=== PATIENT | female | born 1940 | race African-American/Black ===

== ENCOUNTER 2016-12-11 19:48 | Emergency (ER) | payer MEDICARE ==
[2016-12-11] MEDS ORDERED: TYLENOL PO ONE (20:10)
[2016-12-11] MEDS ORDERED: ZOFRAN IM ONE (20:55)
[2016-12-11] MEDS ORDERED: MORPHINE IM ONE (20:55)
--- NOTE | 2016-12-11 20:57 | Cat Scan Report ---
FINAL REPORT PROCEDURE: CT HEAD/BRAIN WO CON TECHNIQUE: Computerized tomography of the head was performed without contrast material. HISTORY: acute migraine/hx glaucoma COMPARISON: No prior studies are available for comparison. FINDINGS: Minimal mucosal thickening is seen in the ethmoid sinuses. Mastoid air cells are clear. No calvarial fracture is seen. There is a focal rounded hypodensity in the right cerebellar hemisphere inferiorly. This could be a recent or old lacunar infarct. A small mass cannot be completely excluded given the rounded appearance. Correlation with contrast-enhanced MRI is recommended. Mild hypodensities are seen in the supratentorial white matter, primarily in the frontal regions. Appearance is most suggestive of chronic small vessel ischemic changes. Cerebral ventricles are normal in size. No acute intracranial hemorrhage or mass effect is seen. IMPRESSION: 7 millimeter rounded hypodensity in the right cerebellar hemisphere is of uncertain etiology. It could be a recent or old lacunar infarct but small mass is not excluded. Correlation with contrast-enhanced MRI is recommended. Likely mild chronic small vessel ischemic changes are seen in the supratentorial white matter.
--- NOTE | 2016-12-11 20:59 | Emergency Department Report ---
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 He stated that she had a had glaucoma surgery 2 weeks ago. Patient denying any visual issue that this time denied nausea or vomiting no dizziness no numbness or tingling sensation no weakness no fever. Quality: moderate Head Injury Location: occipital Recent Head Trauma: no recent headache/trauma, occasional headaches Associated Symptoms: denies: denies symptoms, confusion, fatigue, facial pain, fever/chills, flushing, loss of consciousness, nausea/vomiting, nasal congestion , nasal drainage, numbness in legs/feet, rash, seizures, sinus infection, stiff neck, vision changes, weakness, other Allergies/Adverse Reactions: Allergies No Known Allergies Allergy (Verified 12/11/16 20:57) Home Medications: Ambulatory Orders Losartan [Cozaar] 50 mg PO DAILY 08/05/15 Dexamethasone [Decadron] 20 mg PO QWEEK 12/11/16 Ketorolac Tromethamin 0.4%(Nf) [Acular Ls 0.4% Ophth Key] 1 drop OP BID Ondansetron [Zofran Odt] 4 mg PO Q8HR PRN #14 tab.rapdis 12/11/16 traMADol [Ultram] 50 mg PO Q6HR PRN #14 tablet 12/11/16 ED Review of Systems ROS: Stated complaint: extreme head ache 2-3 days Other details as noted in HPI Comment: All other systems reviewed and negative Constitutional: denies: chills, fever Eyes: denies: eye pain, eye discharge, vision change Respiratory: denies: cough, shortness of breath, SOB with exertion Cardiovascular: denies: chest pain, palpitations, dyspnea on exertion, syncope, paroxysmal nocturnal dyspnea Gastrointestinal: denies: abdominal pain, nausea, vomiting, diarrhea, constipation, hematemesis Genitourinary: denies: dysuria, frequency Musculoskeletal: denies: back pain Neurological: headache. denies: weakness, numbness, paresthesias, confusion, abnormal gait, vertigo ED Past Medical Hx - Past Medical History Previous Medical History?: Yes Hx Arthritis: Yes Hx HIV: No Additional medical history: bone marrow cancer - Surgical History Past Surgical History?: Yes Hx Cholecystectomy: Yes - Social History Smoking Status: Never Smoker Substance Use Type: None - Medications Home Medications: Home Medications Medication Instructions Recorded Confirmed Last Taken Type Losartan [Cozaar] 50 mg PO DAILY 08/05/15 12/11/16 Unknown History Dexamethasone [Decadron] 20 mg PO QWEEK 12/11/16 12/11/16 Unknown History Ketorolac Tromethamin 0.4%(Nf) 1 drop OP BID 12/11/16 12/11/16 Unknown History [Acular Ls 0.4% Ophth Key] Ondansetron [Zofran Odt] 4 mg PO Q8HR PRN #14 tab.rapdis 12/11/16 Unknown Rx traMADol [Ultram] 50 mg PO Q6HR PRN #14 tablet 12/11/16 Unknown Rx ED Physical Exam - General Limitations: Language Barrier General appearance: alert, in no apparent distress - Head Head exam: Present: atraumatic, normocephalic, normal inspection - Eye Eye exam: Present: normal appearance, PERRL, EOMI. Absent: scleral icterus, conjunctival injection, nystagmus, periorbital swelling, periorbital tenderness Pupils: Present: normal accommodation. Absent: miosis, mydriatic - ENT ENT exam: Present: normal exam - Neck Neck exam: Present: normal inspection, full ROM. Absent: tenderness, meningismus, lymphadenopathy, thyromegaly - Respiratory Respiratory exam: Present: normal lung sounds bilaterally. Absent: respiratory distress, wheezes, rales, rhonchi, chest wall tenderness, accessory muscle use, decreased breath sounds - Cardiovascular Cardiovascular Exam: Present: regular rate, normal rhythm, normal heart sounds - GI/Abdominal GI/Abdominal exam: Present: soft. Absent: tenderness, guarding, rebound, rigid , normal bowel sounds, mass, bruit, pulsatile mass - Back Exam Back exam: Present: normal inspection. Absent: tenderness, CVA tenderness (L) - Neurological Exam Neurological exam: Present: alert, oriented X3, CN II-XII intact, normal gait, reflexes normal. Absent: motor sensory deficit - Skin Skin exam: Present: warm, normal color ED Course Vital Signs 12/11/16 12/11/16 19:56 21:48 Temperature 98.1 F Pulse Rate 58 L 64 Respiratory 17 16 Rate Blood Pressure 132/69 Blood Pressure 152/70 [Right] O2 Sat by Pulse 99 99 Oximetry - Reevaluation(s) Reevaluation #1: 12/11/16 21:54 Patient stated that she is feeling much better her headache is completely resolved . advised patient to follow up with Dr. Fong for her abnormal CT brain given the history of bone cancer patient and her family understood and they stated that there was follows Dr. Fong next week. Critical care attestation.: If time is entered above; I have spent that time in minutes in the direct care of this critically ill patient, excluding procedure time. ED Disposition Clinical Impression: Headache Disposition: DC-01 TO HOME OR SELFCARE Is pt being admited?: No Condition: Stable Instructions: Acute Headache (ED) Referrals: PRIMARY CARE, [Primary Care Provider] - 3-5 Days
[2016-12-11 22:12] VITALS: BP 158/70
== END 2016-12-11 22:12 | disposition home or self-care (01) ==
LOC: ED 19:48
DX: R51 Headache (principal); M19.90 Unspecified osteoarthritis, unspecified site; Z90.49 Acquired absence of other specified parts of digestive tract
CPT/HCPCS: 70450; 96372; 99283; J2270; J2405

== ENCOUNTER 2016-12-20 13:37 | Outpatient (CLI) | payer MEDICARE ==
--- NOTE | 2016-12-21 11:06 | Magnetic Resonance Report ---
MRI of the brain with and without contrast. History: Abnormal cranial CT, stroke. Procedure: Routine brain protocol with and without contrast Findings: On the precontrast study, there is a focal area of somewhat triangular shaped hyperintense T1 and T2 signal in the right inferior cerebellar hemisphere, concordant with the location of the hypodense lesion seen on CT although this lesion appears smaller measuring 5 x 9 mm. There is decreasing edema in this area since the prior CT performed on December 11.. Similar hyperintense signal abnormality is seen on flair images, but no abnormality is seen on ADC map images. After contrast administration, there is mild enhancement of this lesion. No additional enhancing lesions are seen. The posterior fossa is otherwise unremarkable. Ventricles are normal in size and contour. There are periventricular white matter T2 and flair hyperintensities consistent with chronic ischemic changes. No extra-axial collections are seen. There are some changes of mild chronic ethmoid sinusitis; otherwise the visualized extracranial structures are unremarkable. The pituitary gland is normal. Impression: 5 x 9 mm focal signal abnormality as detailed above in the right inferior cerebellar hemisphere. This most likely represents a subacute lacunar infarct. Minimal subacute hemorrhage may be present based on the hyperintense precontrast T1 signal. A mass lesion is felt to be very and likely. If clinically appropriate, a repeat study can be performed in 3 months.
== END 2016-12-20 13:38 | disposition home or self-care (01) ==
LOC: MRI 13:37
DX: J32.2 Chronic ethmoidal sinusitis (principal); R93.0 Abnormal findings on diagnostic imaging of skull and head, not elsewhere classified; R60.0 Localized edema; D64.9 Anemia, unspecified
CPT/HCPCS: 36415; 70553; 82565; 84520; A9577

== ENCOUNTER 2018-07-24 12:59 | Inpatient (IN) | payer MEDICARE ==
[2018-07-24] MEDS ORDERED: NACL 0.9% 500 ML 500 ML IV ONE ×2 (13:58→21:00)
[2018-07-24 14:49] LABS: Hematocrit 20.4 % (30.3-42.9); Hemoglobin 6.7 gm/dl (10.1-14.3); Mean Corpuscular HGB Conc 33 % (30-34); Mean Corpuscular Volume 105 fl (79-97); Platelet Count 138 K/mm3 (140-440); Red Blood Count 1.94 M/mm3 (3.65-5.03)
[2018-07-24 14:52] LABS: Red Cell Distribution Width 24.3 % (13.2-15.2)
[2018-07-24 14:58] LABS: INR 0.87 (0.87-1.13)
[2018-07-24 14:59] LABS: Partial Thromboplastin Time 22.3 Sec. (24.2-36.6)
[2018-07-24 15:07] LABS: Calcium 9.4 mg/dL (8.4-10.2)
[2018-07-24 15:47] LABS: Basophils % (Manual) 0 % (0.0-1.8); Eosinophils % (Manual) 0 % (0.0-4.3); RBC Morphology Normal; Total Cells Counted 100
--- NOTE | 2018-07-25 07:56 | History and Physical Report ---
History of Present Illness Date of examination: 07/24/18 Date of admission: 07/24/18 13:47 Chief complaint: anemia - myeloma History of present illness: fatigue /o myeloma - s/p 4th line of treatment this includes VRD Empliciti based recently nicolásgriselann was given Past History Past Medical History: anemia, other (myeloma) Social history: lives with family Medications and Allergies Allergies Allergy/AdvReac Type Severity Reaction Status Date / Time No Known Allergies Allergy Verified 12/11/16 20:57 Home Medications Medication Instructions Recorded Confirmed Last Taken Type Losartan [Cozaar] 50 mg PO DAILY 08/05/15 07/12/17 1 Day Ago History ~07/11/17 Ketorolac Tromethamin 0.4%(Nf) 1 drop OP BID 12/11/16 07/12/17 1 Day Ago History [Acular Ls 0.4% Ophth Key] ~07/11/17 Ondansetron [Zofran ODT TAB] 4 mg PO Q8HR PRN #14 tab.rapdis 12/11/16 07/12/17 1 Day Ago Rx ~07/11/17 Amiodarone [Cordarone 200 MG TAB] 200 mg PO QDAY #30 tablet 07/19/17 Unknown Rx Fluticasone (Nf) [Flovent 44 2 puff IH BID #1 puff 07/19/17 Unknown Rx MCG/PUFF HFA] Inhaler, Assist Devices [Space 1 each MC DAILY #1 spacer 07/19/17 Unknown Rx Chamber Plus] Ipratropium/Albuter (Nf) 2 puff IH QID #1 inha 07/19/17 Unknown Rx [Combivent (Nf)] dilTIAZem CD [Cardizem CD] 300 mg PO QDAY #30 capsule 07/19/17 Unknown Rx metFORMIN [Glucophage] 500 mg PO BID #60 tablet 07/19/17 Unknown Rx predniSONE [Deltasone] 5 mg PO QDAY #6 tab 07/19/17 Unknown Rx Review of Systems Constitutional: fatigue, no fever Ears, nose, mouth and throat: no epistaxis, no bleeding gums Cardiovascular: no chest pain Respiratory: no cough, no hemoptysis Gastrointestinal: no abdominal pain Rectal: no bleeding Integumentary: no rash Hematologic/Lymphatic: no easy bruising Exam - Constitutional Vitals: Temp Pulse Resp BP Pulse Ox 97.7 F 69 16 129/59 97 07/25/18 05:21 07/25/18 05:21 07/25/18 05:21 07/25/18 05:21 07/25/18 05:21 General appearance: Present: no acute distress - EENT Eyes: Present: EOM intact ENT: clear oral mucosa - Neck Neck: Present: normal ROM - Respiratory Respiratory effort: normal Respiratory: bilateral: CTA - Cardiovascular Heart Sounds: Present: S1 & S2 - Extremities Extremities: No edema - Abdominal General gastrointestinal: Present: soft, non-tender Female genitourinary: Present: deferred - Rectal Rectal Exam: deferred - Integumentary Integumentary: Present: warm - Musculoskeletal Musculoskeletal: strength equal bilaterally - Neurologic Neurologic: moves all extremities Results - Labs CBC & Chem 7: 07/24/18 14:04 07/24/18 14:04 Labs: Abnormal lab results 07/24/18 07/24/18 07/24/18 Range/Units 14:04 14:04 14:04 RBC 1.94 L (3.65-5.03) M/mm3 Hgb 6.7 L (10.1-14.3) gm/dl Hct 20.4 L (30.3-42.9) % MCV 105 H (79-97) fl MCH 35 H (28-32) pg RDW 24.3 H (13.2-15.2) % Plt Count 138 L (140-440) K/mm3 Seg Neuts % (Manual) 73.0 H (40.0-70.0) % Monocytes % (Manual) 12.0 H (0.0-7.3) % Lymphocytes # (Manual) 1.1 L (1.2-5.4) K/mm3 Monocytes # (Manual) 0.9 H (0.0-0.8) K/mm3 APTT 22.3 L (24.2-36.6) Sec. Sodium 136 L (137-145) mmol/L Potassium 5.8 H (3.6-5.0) mmol/L Carbon Dioxide 15 L (22-30) mmol/L BUN 63 H (7-17) mg/dL Creatinine 5.4 H (0.7-1.2) mg/dL Crossmatch 07/24/18 Range/Units 14:04 RBC (3.65-5.03) M/mm3 Hgb (10.1-14.3) gm/dl Hct (30.3-42.9) % MCV (79-97) fl MCH (28-32) pg RDW (13.2-15.2) % Plt Count (140-440) K/mm3 Seg Neuts % (Manual) (40.0-70.0) % Monocytes % (Manual) (0.0-7.3) % Lymphocytes # (Manual) (1.2-5.4) K/mm3 Monocytes # (Manual) (0.0-0.8) K/mm3 APTT (24.2-36.6) Sec. Sodium (137-145) mmol/L Potassium (3.6-5.0) mmol/L Carbon Dioxide (22-30) mmol/L BUN (7-17) mg/dL Creatinine (0.7-1.2) mg/dL Crossmatch See Detail 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 - Patient Problems (1) Anemia Current Visit: Yes Status: Acute
--- NOTE | 2018-07-25 07:59 | Hem/Onc Progress Note ---
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 2.6 to 2.9 in recent past pt had BMBx in may 2018 plan was for daratumumab had given option of brielle to family HTN SCD - as anemia nephrology consult ivf admission status change from observation to admission tried to call grand son using pt phone and hospital phone - no respone - Patient Problems (1) Anemia Current Visit: Yes Status: Acute (2) Myeloma Current Visit: Yes Status: Acute Subjective Date of service: 07/25/18 Principal diagnosis: myeloma anemia Interval history: s/p prbc Objective - Constitutional Vitals: Last Vital Signs Temp 97.7 F 07/25/18 05:21 Pulse 69 07/25/18 05:21 Resp 16 07/25/18 05:21 BP 129/59 07/25/18 05:21 Pulse Ox 97 07/25/18 05:21 Pain Intensity (0-10): denies any pain General appearance: no acute distress Performance status: 3-limited selfcare - EENT Eyes: EOM intact ENT: clear oral mucosa Lymph node exam: negative cervical - Neck Neck: normal ROM - Respiratory Respiratory effort: Positive: normal Respiratory: bilateral: CTA - Cardiovascular Heart Sounds: Present: S1 & S2 Extremities: No edema - Gastrointestinal General gastrointestinal: Present: soft, non-tender Rectal Exam: deferred - Genitourinary Female genitourinary: Present: deferred - Integumentary Integumentary: warm - Musculoskeletal Musculoskeletal: generalized weakness - Neurologic Neurologic: moves all extremities - Labs Lab Results: Laboratory Results - last 24 hr 07/24/18 07/24/18 07/24/18 14:04 14:04 14:04 WBC 7.1 RBC 1.94 L Hgb 6.7 L Hct 20.4 L MCV 105 H MCH 35 H MCHC 33 RDW 24.3 H Plt Count 138 L Add Manual Diff Complete Total Counted 100 Seg Neuts % (Manual) 73.0 H Band Neutrophils % 0 Lymphocytes % (Manual) 15.0 Reactive Lymphs % (Man) 0 Monocytes % (Manual) 12.0 H Eosinophils % (Manual) 0 Basophils % (Manual) 0 Metamyelocytes % 0 Myelocytes % 0 Promyelocytes % 0 Blast Cells % 0 Nucleated RBC % Not Reportable Seg Neutrophils # Man 5.2 Band Neutrophils # 0.0 Lymphocytes # (Manual) 1.1 L Abs React Lymphs (Man) 0.0 Monocytes # (Manual) 0.9 H Eosinophils # (Manual) 0.0 Basophils # (Manual) 0.0 Metamyelocytes # 0.0 Myelocytes # 0.0 Promyelocytes # 0.0 Blast Cells # 0.0 WBC Morphology Not Reportable Hypersegmented Neuts Not Reportable Hyposegmented Neuts Not Reportable Hypogranular Neuts Not Reportable Smudge Cells Not Reportable Toxic Granulation Not Reportable Toxic Vacuolation Not Reportable Dohle Bodies Not Reportable Pelger-Huet Anomaly Not Reportable Amy Rods Not Reportable Platelet Estimate Not Reportable Clumped Platelets Not Reportable Plt Clumps, EDTA Not Reportable Large Platelets Not Reportable Giant Platelets Not Reportable Platelet Satelliting Not Reportable Plt Morphology Comment Not Reportable RBC Morphology Normal Dimorphic RBCs Not Reportable Polychromasia Not Reportable Hypochromasia Not Reportable Poikilocytosis Not Reportable Anisocytosis Not Reportable Microcytosis Not Reportable Macrocytosis Not Reportable Spherocytes Not Reportable Pappenheimer Bodies Not Reportable Sickle Cells Not Reportable Target Cells Not Reportable Tear Drop Cells Not Reportable Ovalocytes Not Reportable Helmet Cells Not Reportable [place] Bodies Not Reportable Isabella Rings Not Reportable Keith Cells Not Reportable Bite Cells Not Reportable Crenated Cell Not Reportable Elliptocytes Not Reportable Acanthocytes (Spur) Not Reportable Rouleaux Not Reportable Hemoglobin C Crystals Not Reportable Schistocytes Not Reportable Malaria parasites Not Reportable Osmany Bodies Not Reportable Hem Pathologist Commnt No PT 12.4 INR 0.87 APTT 22.3 L Sodium 136 L Potassium 5.8 H Chloride 101.8 Carbon Dioxide 15 L Anion Gap 25 BUN 63 H Creatinine 5.4 H Estimated GFR 8 BUN/Creatinine Ratio 12 Glucose 100 Calcium 9.4 Blood Type Antibody Screen Crossmatch 0401/19 14:04 WBC RBC Hgb Hct MCV MCH MCHC RDW Plt Count Add Manual Diff Total Counted Seg Neuts % (Manual) Band Neutrophils % Lymphocytes % (Manual) Reactive Lymphs % (Man) Monocytes % (Manual) Eosinophils % (Manual) Basophils % (Manual) Metamyelocytes % Myelocytes % Promyelocytes % Blast Cells % Nucleated RBC % Seg Neutrophils # Man Band Neutrophils # Lymphocytes # (Manual) Abs React Lymphs (Man) Monocytes # (Manual) Eosinophils # (Manual) Basophils # (Manual) Metamyelocytes # Myelocytes # Promyelocytes # Blast Cells # WBC Morphology Hypersegmented Neuts Hyposegmented Neuts Hypogranular Neuts Smudge Cells Toxic Granulation Toxic Vacuolation Dohle Bodies Pelger-Huet Anomaly Amy Rods Platelet Estimate Clumped Platelets Plt Clumps, EDTA Large Platelets Giant Platelets Platelet Satelliting Plt Morphology Comment RBC Morphology Dimorphic RBCs Polychromasia Hypochromasia Poikilocytosis Anisocytosis Microcytosis Macrocytosis Spherocytes Pappenheimer Bodies Sickle Cells Target Cells Tear Drop Cells Ovalocytes Helmet Cells [place] Bodies Isabella Rings Brave Cells Bite Cells Crenated Cell Elliptocytes Acanthocytes (Spur) Rouleaux Hemoglobin C Crystals Schistocytes Malaria parasites Osmany Bodies Hem Pathologist Commnt PT INR APTT Sodium Potassium Chloride Carbon Dioxide Anion Gap BUN Creatinine Estimated GFR BUN/Creatinine Ratio Glucose Calcium Blood Type O POSITIVE Antibody Screen Negative Crossmatch See Detail Medications & Allergies - Medications Allergies/Adverse Reactions: Allergies No Known Allergies Allergy (Verified 12/11/16 20:57) Home Medications: Home Medications Medication Instructions Recorded Confirmed Last Taken Type Losartan [Cozaar] 50 mg PO DAILY 08/05/15 07/12/17 1 Day Ago History ~07/11/17 Ketorolac Tromethamin 0.4%(Nf) 1 drop OP BID 12/11/16 07/12/17 1 Day Ago History [Acular Ls 0.4% Ophth Key] ~07/11/17 Ondansetron [Zofran ODT TAB] 4 mg PO Q8HR PRN #14 tab.rapdis 12/11/16 07/12/17 1 Day Ago Rx ~07/11/17 Amiodarone [Cordarone 200 MG TAB] 200 mg PO QDAY #30 tablet 07/19/17 Unknown Rx Fluticasone (Nf) [Flovent 44 2 puff IH BID #1 puff 07/19/17 Unknown Rx MCG/PUFF HFA] Inhaler, Assist Devices [Space 1 each MC DAILY #1 spacer 07/19/17 Unknown Rx Chamber Plus] Ipratropium/Albuter (Nf) 2 puff IH QID #1 inha 07/19/17 Unknown Rx [Combivent (Nf)] dilTIAZem CD [Cardizem CD] 300 mg PO QDAY #30 capsule 07/19/17 Unknown Rx metFORMIN [Glucophage] 500 mg PO BID #60 tablet 07/19/17 Unknown Rx predniSONE [Deltasone] 5 mg PO QDAY #6 tab 07/19/17 Unknown Rx
--- NOTE | 2018-07-25 08:35 | Consultation ---
History of Present Illness - Reason for Consult Consult date: 07/25/18 acute renal failure, chronic renal failure - History of Present Illness The patient is a 78 YO female who is well known to our service with medical history significant for DM type 2, HTN, CKD, Systolic CHF, Paroxysmal A.fib, COPD, Multiple myeloma, Anemia and past h/o pneumothorax who was a direct admit from Heme-Onc office for blood transfusion. Her Hb was 6.7 on admission. History limited and was obtained through the [facility]. She c/o fatigue and tiredness. She denies N, V, D, fever, chills, cp, cough, leg swelling, dizziness, dysuria, hematuria or syncope. Her creatinine was 5.4 with potassium of 5.8. Nephrology was consulted for further evaluation. Past History Past Medical History: anemia, hypertension, renal failure, other (Myeloma) Social history: lives with family Medications and Allergies Allergies Allergy/AdvReac Type Severity Reaction Status Date / Time No Known Allergies Allergy Verified 12/11/16 20:57 Home Medications Medication Instructions Recorded Confirmed Last Taken Type Acyclovir 400 mg PO BID 07/25/18 07/25/18 Unknown History Losartan 50 mg PO DAILY 07/25/18 07/25/18 Unknown History Percocet 5/325 mg 1 tab PO Q4H PRN 07/25/18 07/25/18 Unknown History Protonix 40 mg PO DAILY 07/25/18 07/25/18 Unknown History Active Meds: Active Medications Allopurinol (Zyloprim) 300 mg PO QDAY JOHNATHON Dexamethasone (Decadron) 20 mg PO Q24HR JOHNATHON Stop: 07/28/18 23:59 Sodium Chloride (Nacl 0.9% 1000 Ml) 1,000 mls @ 75 mls/hr IV DIRECT JOHNATHON Sodium Chloride (Nacl 0.9%) 75 ml IV DIRECT JOHNATHON Review of Systems Constitutional: fatigue, weakness, no weight loss, no weight gain, no fever, no chills, no poor appetite Breasts: deferred Cardiovascular: high blood pressure, no chest pain, no orthopnea, no edema, no syncope, no leg edema Respiratory: no cough, no hemoptysis Gastrointestinal: no abdominal pain, no nausea, no vomiting, no diarrhea, no melena, no jaundice Genitourinary Female: no dysuria Integumentary: no wounds, no jaundice Exam - Vital Signs Vital signs: Vital Signs Temp Pulse Resp BP Pulse Ox 97.6 F 71 16 142/60 100 07/24/18 14:17 07/24/18 14:17 07/24/18 14:17 07/24/18 14:17 07/24/18 14:17 - General Appearance General appearance: well-developed, well-nourished, appears stated age, other (not in distress) EENT: ATNC, PERRL, hearing intact Neck: Present: neck supple, trachea midline Respiratory: Clear to Ascultation Heart: regular, S1S2, no murmurs Gastrointestinal: Present: normoactive bowel sounds. Absent: tenderness, diste nded Integumentary: no rash, warm and dry Neurologic: no focal deficit, no asterixis Musculoskeletal: Present: other (no edema) Results - Lab Results 07/25/18 09:07 07/25/18 21:36 Most recent lab results Calcium 9.4 mg/dL (8.4-10.2) 07/24/18 14:04 - Image Kidney/bladder ultrasound: pending Assessment and Plan 1. Acute kidney injury: LIZETT superimposed on CKD stage 3 in the setting of Myeloma. Suspect Myeloma kidney. Started on IV fluids. Renal US pending. Monitor renal function. Renal prognosis is guarded. Avoid nephrotoxic agents. 2. FEN: Hyperkalemia, kayexalate, Insulin-Dextrose, Albuterol and IV Calcium ordered. Metabolic acidosis, monitor. Patient require hemodialysis if the metabolic parameters are improving. Siddharth riddle. 3. Anemia: S/p PRBC. 4. Multiple Myeloma. 5. DM type 2.
[2018-07-25] MEDS ORDERED: NACL 0.9% IV SCH (09:00)
[2018-07-25 09:53] LABS: Basophils % (Auto) 0.2 % (0.0-1.8); Eosinophils % (Auto) 0.6 % (0.0-4.3); Hematocrit 26.5 % (30.3-42.9); Hemoglobin 8.8 gm/dl (10.1-14.3); Lymphocytes # (Auto) 0.7 K/mm3 (1.2-5.4); Lymphocytes % (Auto) 13.9 % (13.4-35.0); Mean Corpuscular HGB Conc 33 % (30-34); Mean Corpuscular Volume 101 fl (79-97); Monocytes # (Auto) 0.7 K/mm3 (0.0-0.8); Monocytes % (Auto) 13.1 % (0.0-7.3); Platelet Count 126 K/mm3 (140-440); Red Blood Count 2.62 M/mm3 (3.65-5.03); Red Cell Distribution Width 23.4 % (13.2-15.2)
[2018-07-25 10:16] LABS: Albumin 3.4 g/dL (3.9-5); Calcium 9.1 mg/dL (8.4-10.2)
[2018-07-25] MEDS: ZYLOPRIM PO SCH (10:25)
[2018-07-25] MEDS: NACL 0.9% 1000 ML 1,000 ML IV SCH (10:26)
[2018-07-25] MEDS: DECADRON PO SCH (10:40)
[2018-07-25 11:04] LABS: Bacteria,Urine 1+ /HPF (Negative); Bilirubin,Urine NEG (Negative); Blood,Urine NEG (Negative); Color,Urine Straw (Yellow); Mucus,Urine FEW /HPF; Urobilinogen,Urine < 2.0 mg/dL (<2.0)
[2018-07-25 11:07] LABS: Creatinine,Urine 59.1 mg/dL (0.1-20.0)
[2018-07-25] MEDS ORDERED: KIONEX PR ONE (17:10)
[2018-07-25] MEDS ORDERED: PROVENTIL IH ONE (17:10)
[2018-07-25] MEDS ORDERED: HumuLIN R IV ONE ×2 (18:00→22:25)
[2018-07-25] MEDS ORDERED: CALCIUM GLUCONATE 2,000 MG in NACL 0.9% 100 ML IV ONE (18:00)
[2018-07-25] MEDS ORDERED: D50W (25GM) Syringe IV ONE (18:00)
[2018-07-25] MEDS ORDERED: PERCOCET 5/325 PO PRN (18:37)
[2018-07-25] MEDS: ZOVIRAX PO SCH (21:50)
[2018-07-25 22:11] LABS: Calcium 9.5 mg/dL (8.4-10.2)
[2018-07-25] MEDS ORDERED: KIONEX PO ONE (22:25)
[2018-07-26] MEDS ORDERED: HumuLIN R IV ONE ×3 (00:30→19:13)
[2018-07-26] MEDS: NACL 0.9% 1000 ML 1,000 ML IV SCH (06:02)
--- NOTE | 2018-07-26 07:00 | Progress Note ---
Assessment and Plan 1. Acute kidney injury: LIZETT superimposed on CKD stage 3 in the setting of Myeloma. Suspect Myeloma kidney. Continue IV fluids. Renal US negative for hydro. Monitor renal function. Renal prognosis is guarded. Avoid nephrotoxic agents. 2. FEN: Persistent Hyperkalemia, received 2 doses of kayexalate, Insulin-Dextrose, Albuterol and IV Calcium. D/w patient through the asphalt worker phone regarding the possibility of hemodialysis if the potassium level or kidney function is not improving. Discussed the indications, benefits and risks involved in hemodialysis. She verbalized understanding about hemodialysis. Patient gave verbal consent to proceed with hemodialysis of needed. Metabolic acidosis, Sodium bicarbonate infusion ordered. Monitor lytes. 3. Anemia: S/p PRBC. 4. Multiple Myeloma. 5. DM type 2. Subjective Date of service: 07/26/18 Principal diagnosis: myeloma anemia Interval history: Patient was seen and examined at the bedside. C/o of constipation. Objective - Vital Signs Vital signs: Vital Signs - 12hr 07/25/18 07/26/18 21:34 05:31 Temperature 98.3 F 98.3 F Pulse Rate 86 Respiratory 24 18 Rate Blood Pressure 154/81 135/67 O2 Sat by Pulse 97 Oximetry - General Appearance General appearance: well-developed, well-nourished, appears stated age, other (not in distress) EENT: ATNC, PERRL, mucous membranes moist, hearing intact, vision intact Neck: supple Respiratory: Present: Clear to Ascultation Cardiology: regular, S1S2, no murmurs Gastrointestinal: normoactive bowel sounds, no tenderness, no distended Integumentary: no rash, warm and dry Neurologic: no focal deficit, no asterixis Musculoskeletal: other (no edema) - Lab 07/26/18 06:52 07/26/18 06:52 Most recent lab results Calcium 9.5 mg/dL (8.4-10.2) 07/25/18 21:36 Phosphorus 5.80 mg/dL (2.5-4.5) H 07/25/18 09:07 Urine Creatinine 59.1 mg/dL (0.1-20.0) H 07/25/18 10:15 Urine Sodium 36 mmol/L 07/25/18 10:15 Medications & Allergies - Medications Allergies/Adverse Reactions: Allergies No Known Allergies Allergy (Verified 12/11/16 20:57) Home Medications: Home Medications Medication Instructions Recorded Confirmed Last Taken Type Acyclovir 400 mg PO BID 07/25/18 07/25/18 Unknown History Losartan 50 mg PO DAILY 07/25/18 07/25/18 Unknown History Percocet 5/325 mg 1 tab PO Q4H PRN 07/25/18 07/25/18 Unknown History Protonix 40 mg PO DAILY 07/25/18 07/25/18 Unknown History Active Medications: Generic Name Dose Route Start Last Admin Trade Name Freq PRN Reason Stop Dose Admin Acyclovir 400 mg 07/25/18 22:00 07/25/18 21:50 Zovirax PO 400 mg BID JOHNATHON Administration Allopurinol 300 mg 07/25/18 10:00 07/25/18 10:25 Zyloprim PO 300 mg QDAY JOHNATHON Administration Dexamethasone 20 mg 07/25/18 10:00 07/25/18 10:40 Decadron PO 07/28/18 23:59 20 mg Q24HR JOHNATHON Administration Sodium Chloride 1,000 mls @ 75 mls/hr 07/25/18 09:00 07/26/18 06:02 Nacl 0.9% 1000 Ml IV 75 mls/hr DIRECT JOHNATHON Administration Losartan Potassium 50 mg 07/26/18 10:00 Cozaar PO QDAY JOHNATHON Oxycodone/Acetaminophen 1 tab 07/25/18 18:37 Percocet 5/325 PO Q4H PRN Pain, Moderate (4-6) Pantoprazole Sodium 40 mg 07/26/18 10:00 Protonix PO QDAY JOHNATHON
[2018-07-26 07:10] LABS: Basophils % (Auto) 0.1 % (0.0-1.8); Hematocrit 25.1 % (30.3-42.9); Hemoglobin 8.1 gm/dl (10.1-14.3); Lymphocytes # (Auto) 0.5 K/mm3 (1.2-5.4); Mean Corpuscular HGB Conc 32 % (30-34); Mean Corpuscular Volume 103 fl (79-97); Monocytes # (Auto) 0.8 K/mm3 (0.0-0.8); Monocytes % (Auto) 13.1 % (0.0-7.3); Platelet Count 124 K/mm3 (140-440); Red Blood Count 2.43 M/mm3 (3.65-5.03)
[2018-07-26 07:17] LABS: Red Cell Distribution Width 23.2 % (13.2-15.2)
[2018-07-26 07:32] LABS: Calcium 8.9 mg/dL (8.4-10.2)
--- NOTE | 2018-07-26 07:39 | Hem/Onc Progress Note ---
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 PRBC on acyclovir allopurinol pain meds plan was for xgeva in past got zometa ( may 2018) in clinic accounting system expert was 2.6 to 2.9 in recent past pt had BMBx in may 2018 plan was for daratumumab had given option of brielle to family HTN SCD - as anemia nephrology consult ivf admission status change from observation to admission tried to call grand son using pt phone and hospital phone - no respone 07/26/2018 myeloma - SFLCA in office was better in recent past was 115 in jan - 248 mid jun 2018 - 316 and jul 24 - 162 accounting 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 - acute on chronic kidney failure anemia - s/p prbc on hydration - Patient Problems (1) Anemia Current Visit: Yes Status: Acute (2) Myeloma Current Visit: Yes Status: Acute Subjective Date of service: 07/26/18 Principal diagnosis: myeloma - anemia Interval history: d/w dr barone used pts phone and called the grandson Objective - Constitutional Vitals: Last Vital Signs Temp 98.3 F 07/26/18 05:31 Pulse 86 07/26/18 05:31 Resp 18 07/26/18 05:31 BP 135/67 07/26/18 05:31 Pulse Ox 97 07/26/18 05:31 Pain Intensity (0-10): denies any pain General appearance: no acute distress Performance status: 3-limited selfcare - EENT Eyes: EOM intact ENT: clear oral mucosa Lymph node exam: negative cervical - Neck Neck: normal ROM - Respiratory Respiratory effort: Positive: normal Respiratory: bilateral: CTA - Cardiovascular Heart Sounds: Present: S1 & S2 ( ) Extremities: No edema - Gastrointestinal General gastrointestinal: Present: soft, non-tender Rectal Exam: deferred - Genitourinary Female genitourinary: Present: deferred - Integumentary Integumentary: warm - Musculoskeletal Musculoskeletal: strength equal bilaterally - Neurologic Neurologic: moves all extremities - Labs Lab Results: Laboratory Results - last 24 hr 07/25/18 07/25/18 07/25/18 09:07 09:07 10:15 WBC 5.1 RBC 2.62 L Hgb 8.8 L Hct 26.5 L D MCV 101 H MCH 34 H MCHC 33 RDW 23.4 H Plt Count 126 L Lymph % (Auto) 13.9 [place] % (Auto) 13.1 H Eos % (Auto) 0.6 Baso % (Auto) 0.2 Lymph # 0.7 L Gregg # 0.7 Eos # 0.0 Baso # 0.0 Seg Neutrophils % 72.2 H Seg Neutrophils # 3.7 Sodium 139 Potassium 5.9 H Chloride 108.3 H Carbon Dioxide 14 L Anion Gap 23 BUN 63 H Creatinine 5.5 H Estimated GFR 7 BUN/Creatinine Ratio 11 Glucose 122 H Calcium 9.1 Phosphorus 5.80 H Total Bilirubin 0.40 AST 40 ALT 25 Alkaline Phosphatase 304 H Total Protein 8.1 Albumin 3.4 L Albumin/Globulin Ratio 0.7 PTH Intact Urine Color Straw Urine Turbidity Clear Urine pH 6.0 Ur Specific [place] 1.008 Urine Protein 30 mg/dl Urine Glucose (UA) Neg Urine Ketones Neg Urine Blood Neg Urine Nitrite Neg Urine Bilirubin Neg Urine Urobilinogen < 2.0 Ur Leukocyte Esterase Tr Urine WBC (Auto) 2.0 Urine RBC (Auto) 5.0 U Epithel Cells (Auto) 1.0 Urine Bacteria (Auto) 1+ Urine Mucus Few Urine Eosinophils Urine Creatinine Urine Sodium 07/25/18 07/25/18 07/25/18 10:15 10:15 21:36 WBC RBC Hgb Hct MCV MCH MCHC RDW Plt Count Lymph % (Auto) Gregg % (Auto) Eos % (Auto) Baso % (Auto) Lymph # [place] # Eos # Baso # Seg Neutrophils % Seg Neutrophils # Sodium 137 Potassium 5.9 H Chloride 106.5 Carbon Dioxide 10 L Anion Gap 26 BUN 70 H Creatinine 5.9 H Estimated GFR 7 BUN/Creatinine Ratio 12 Glucose 405 H Calcium 9.5 Phosphorus Total Bilirubin AST ALT Alkaline Phosphatase Total Protein Albumin Albumin/Globulin Ratio PTH Intact Urine Color Urine Turbidity Urine pH Ur Specific [place] Urine Protein Urine Glucose (UA) Urine Ketones Urine Blood Urine Nitrite Urine Bilirubin Urine Urobilinogen Ur Leukocyte Esterase Urine WBC (Auto) Urine RBC (Auto) U Epithel Cells (Auto) Urine Bacteria (Auto) Urine Mucus Urine Eosinophils None seen Urine Creatinine 59.1 H Urine Sodium 36 07/26/18 07/26/18 07/26/18 06:52 06:52 06:52 WBC 5.8 RBC 2.43 L Hgb 8.1 L Hct 25.1 L MCV 103 H MCH 33 H MCHC 32 RDW 23.2 H Plt Count 124 L Lymph % (Auto) 9.0 L [place] % (Auto) 13.1 H Eos % (Auto) 0.0 Baso % (Auto) 0.1 Lymph # 0.5 L [place]gg # 0.8 Eos # 0.0 Baso # 0.0 Seg Neutrophils % 77.8 H Seg Neutrophils # 4.5 Sodium 139 Potassium 5.6 H Chloride 109.4 H Carbon Dioxide 13 L Anion Gap 22 BUN 67 H Creatinine 5.2 H Estimated GFR 8 BUN/Creatinine Ratio 13 Glucose 80 Calcium 8.9 Phosphorus Total Bilirubin AST ALT Alkaline Phosphatase Total Protein Albumin Albumin/Globulin Ratio PTH Intact 134.2 H Urine Color Urine Turbidity Urine pH Ur Specific [place] Urine Protein Urine Glucose (UA) Urine Ketones Urine Blood Urine Nitrite Urine Bilirubin Urine Urobilinogen Ur Leukocyte Esterase Urine WBC (Auto) Urine RBC (Auto) U Epithel Cells (Auto) Urine Bacteria (Auto) Urine Mucus Urine Eosinophils Urine Creatinine Urine Sodium Medications & Allergies - Medications Allergies/Adverse Reactions: Allergies No Known Allergies Allergy (Verified 12/11/16 20:57) Home Medications: Home Medications Medication Instructions Recorded Confirmed Last Taken Type Acyclovir 400 mg PO BID 07/25/18 07/25/18 Unknown History Losartan 50 mg PO DAILY 07/25/18 07/25/18 Unknown History Percocet 5/325 mg 1 tab PO Q4H PRN 07/25/18 07/25/18 Unknown History Protonix 40 mg PO DAILY 07/25/18 07/25/18 Unknown History Active Medications: Generic Name Dose Route Start Last Admin Trade Name Freq PRN Reason Stop Dose Admin Acyclovir 400 mg 07/25/18 22:00 07/25/18 21:50 Zovirax PO 400 mg BID JOHNATHON Administration Allopurinol 300 mg 07/25/18 10:00 07/25/18 10:25 Zyloprim PO 300 mg QDAY JOHNATHON Administration Dexamethasone 20 mg 07/25/18 10:00 07/25/18 10:40 Decadron PO 07/28/18 23:59 20 mg Q24HR JOHNATHON Administration Sodium Chloride 1,000 mls @ 75 mls/hr 07/25/18 09:00 07/26/18 06:02 Nacl 0.9% 1000 Ml IV 75 mls/hr DIRECT JOHNATHON Administration Losartan Potassium 50 mg 07/26/18 10:00 Cozaar PO QDAY JOHNATHON Oxycodone/Acetaminophen 1 tab 07/25/18 18:37 Percocet 5/325 PO Q4H PRN Pain, Moderate (4-6) Pantoprazole Sodium 40 mg 07/26/18 10:00 Protonix PO QDAY JOHNATHON
[2018-07-26] MEDS ORDERED: COZAAR PO SCH (10:00)
[2018-07-26] MEDS ORDERED: DULCOLAX PR ONE (10:30)
[2018-07-26] MEDS: PROTONIX PO SCH (10:47)
[2018-07-26] MEDS: ZYLOPRIM PO SCH (10:47)
[2018-07-26] MEDS: ZOVIRAX PO SCH ×2 (10:48→21:33)
[2018-07-26] MEDS: DECADRON PO SCH (10:48)
[2018-07-26] MEDS ORDERED: D50W (25GM) Syringe IV ONE ×2 (11:00→19:13)
[2018-07-26] MEDS ORDERED: CEPHULAC PO ONE (11:30)
--- NOTE | 2018-07-26 12:09 | Ultrasound Report ---
PROCEDURE: US RENAL BILAT TECHNIQUE: Transverse longitudinal sonograms obtained with pelayo scale sonography HISTORY: Acute renal failure COMPARISONS: renal ultrasound July 11, 2017 FINDINGS: Right kidney measures 11.9 x 4.6 x 4.4 cm. Cortex 1.6 cm. Left kidney measures 10.8 x 5.7 x 7 cm. Cortex 1.2 cm. Kidneys demonstrate increased cortical echogenicity. Normal cortical thickness. No calculus. No hydro nephrosis. No cyst or mass. Bladder appears unremarkable. IMPRESSION: Normal size kidneys without hydronephrosis. Increased parenchymal echogenicity which can be seen in the setting of medical renal disease.. This document is electronically signed by Darrel Aceves MD., July 26 2018 12:07:47 PM ET
[2018-07-26] MEDS: HumuLIN R SUB-Q SCH ×3 (12:29→22:45)
--- NOTE | 2018-07-26 14:44 | History and Physical Report ---
History of Present Illness Date of admission: 07/25/18 12:59 Chief complaint: My kidneys are not working History of present illness: 78 YO Female with Multiple Myeloma, Acute Renal Failure, HTN initially admitted by the Oncology service for PRBC transfusion. Pt hospital course complicated by Acute Renal Failure. Pt care transferred to Hospitalist Service. Pt resting comfortably in bed. Pt denies fever, chills, CP, palpitations, NVD, Trauma, Productive cough or recent ill contacts. Pt found to have ARF. Nephrology consulted. No reported nursing events. Past History Past Medical History: anemia, hypertension, renal failure, other (Myeloma) Past Surgical History: No surgical history, Other Social history: , lives with family Medications and Allergies Allergies Allergy/AdvReac Type Severity Reaction Status Date / Time No Known Allergies Allergy Verified 12/11/16 20:57 Home Medications Medication Instructions Recorded Confirmed Last Taken Type Acyclovir 400 mg PO BID 07/25/18 07/25/18 Unknown History Losartan 50 mg PO DAILY 07/25/18 07/25/18 Unknown History Percocet 5/325 mg 1 tab PO Q4H PRN 07/25/18 07/25/18 Unknown History Protonix 40 mg PO DAILY 07/25/18 07/25/18 Unknown History Active Meds: Active Medications Acyclovir (Zovirax) 400 mg PO BID [facility] Last Admin: 07/26/18 10:48 Dose: 400 mg Documented by: Allopurinol (Zyloprim) 300 mg PO QDAY [facility] Last Admin: 07/26/18 10:47 Dose: 300 mg Documented by: Dexamethasone (Decadron) 20 mg PO Q24HR [facility] Stop: 07/28/18 23:59 Last Admin: 07/26/18 10:48 Dose: 20 mg Documented by: Sodium Chloride (Nacl 0.9% 1000 Ml) 1,000 mls @ 75 mls/hr IV DIRECT [facility] Last Admin: 07/26/18 06:02 Dose: 75 mls/hr Documented by: Insulin Human Regular (Humulin R) 0 units SUB-Q ACHS JOHNATHON; Protocol Last Admin: 07/26/18 12:29 Dose: 2 units Documented by: Oxycodone/Acetaminophen (Percocet 5/325) 1 tab PO Q4H PRN PRN Reason: Pain, Moderate (4-6) Pantoprazole Sodium (Protonix) 40 mg PO QDAY JOHNATHON Last Admin: 07/26/18 10:47 Dose: 40 mg Documented by: Review of Systems Constitutional: no weight loss, no weight gain, no fever, no chills Ears, nose, mouth and throat: no ear pain, no ear discharge, no tinnitis, no decreased hearing, no nose pain, no nasal congestion Cardiovascular: no chest pain, no orthopnea, no palpitations, no rapid/irregular heart beat, no edema Respiratory: no cough, no cough with sputum, no excessive sputum, no hemoptysis, no shortness of breath Gastrointestinal: no nausea, no vomiting, no diarrhea, no constipation Genitourinary Female: no pelvic pain, no flank pain, no menorrhagia, no dysuria, no urinary frequency, no urgency Rectal: no pain, no incontinence, no bleeding Musculoskeletal: no neck stiffness, no neck pain, no shooting arm pain, no arm n umbness/tingling, no low back pain, no shooting leg pain, no leg numbness/tingling Integumentary: no rash, no pruritis, no redness, no sores, no wounds Neurological: no paralysis, no weakness, no parathesias, no numbness, no tingling, no seizures, no syncope Psychiatric: no anxiety, no memory loss, no change in sleep habits, no sleep disturbances, no insomnia, no hypersomnia, no change in appetite Endocrine: no cold intolerance, no heat intolerance, no polyphagia, no excessive thirst, no polydipsia, no polyuria, no nocturia Hematologic/Lymphatic: no easy bruising, no easy bleeding, no lymphadenopathy, no lymphedema Allergic/Immunologic: no urticaria, no allergic rhinitis, no wheezing, no persistent infections Exam - Constitutional Vitals: Temp Pulse Resp BP Pulse Ox 98.4 F 78 22 139/69 96 07/26/18 11:38 07/26/18 11:38 07/26/18 11:38 07/26/18 11:38 07/26/18 11:38 General appearance: Present: no acute distress, well-nourished - EENT Eyes: Present: PERRL ENT: hearing intact, clear oral mucosa - Neck Neck: Present: supple, normal ROM - Respiratory Respiratory effort: normal Respiratory: bilateral: CTA - Cardiovascular Heart Sounds: Present: S1 & S2. Absent: rub, click - Extremities Extremities: pulses symmetrical, No edema Peripheral Pulses: within normal limits - Abdominal General gastrointestinal: Present: soft, non-tender, non-distended, normal bowel sounds Female genitourinary: Present: normal - Integumentary Integumentary: Present: clear, warm, dry - Musculoskeletal Musculoskeletal: gait normal, strength equal bilaterally - Psychiatric Psychiatric: appropriate mood/affect, intact judgment & insight - Neurologic Neurologic: CNII-XII intact, moves all extremities Results - Labs CBC & Chem 7: 07/26/18 06:52 07/26/18 16:45 Labs: Abnormal lab results 07/25/18 07/26/18 07/26/18 Range/Units 21:36 06:52 06:52 RBC 2.43 L (3.65-5.03) M/mm3 Hgb 8.1 L (10.1-14.3) gm/dl Hct 25.1 L (30.3-42.9) % MCV 103 H (79-97) fl MCH 33 H (28-32) pg RDW 23.2 H (13.2-15.2) % Plt Count 124 L (140-440) K/mm3 Lymph % (Auto) 9.0 L (13.4-35.0) % [place] % (Auto) 13.1 H (0.0-7.3) % Lymph # 0.5 L (1.2-5.4) K/mm3 Seg Neutrophils % 77.8 H (40.0-70.0) % Potassium 5.9 H 5.6 H (3.6-5.0) mmol/L Chloride 109.4 H (98-107) mmol/L Carbon Dioxide 10 L 13 L (22-30) mmol/L BUN 70 H 67 H (7-17) mg/dL Creatinine 5.9 H 5.2 H (0.7-1.2) mg/dL Glucose 405 H (65-100) mg/dL Total Creatine Kinase 27 L (30-135) units/L PTH Intact (15-65) pg/mL 07/26/18 Range/Units 06:52 RBC (3.65-5.03) M/mm3 Hgb (10.1-14.3) gm/dl Hct (30.3-42.9) % MCV (79-97) fl MCH (28-32) pg RDW (13.2-15.2) % Plt Count (140-440) K/mm3 Lymph % (Auto) (13.4-35.0) % [place] % (Auto) (0.0-7.3) % Lymph # (1.2-5.4) K/mm3 Seg Neutrophils % (40.0-70.0) % Potassium (3.6-5.0) mmol/L Chloride (98-107) mmol/L Carbon Dioxide (22-30) mmol/L BUN (7-17) mg/dL Creatinine (0.7-1.2) mg/dL Glucose (65-100) mg/dL Total Creatine Kinase (30-135) units/L PTH Intact 134.2 H (15-65) pg/mL Assessment and Plan - Patient Problems (1) Multiple myeloma Current Visit: Yes Status: Acute Qualifiers: Multiple myeloma remission status: not in remission Qualified Code(s): C90.00 - Multiple myeloma not having achieved remission Plan to address problem: Oncology consulted, (2) ARF (acute renal failure) with tubular necrosis Current Visit: Yes Status: Acute Plan to address problem: IVF resuscitation, nephrology consulted, monitor uop q shift, (3) DVT prophylaxis Current Visit: No Status: Acute Plan to address problem: SCD to BLE while in bed, Pt ambulating independently.
[2018-07-26 17:43] LABS: Calcium 8.8 mg/dL (8.4-10.2)
[2018-07-26] MEDS: SODIUM BICARBONATE 150 MEQ in D5W 1,000 ML IV SCH (18:14)
[2018-07-26] MEDS ORDERED: KIONEX PO ONE (19:13)
[2018-07-26] MEDS ORDERED: CALCIUM GLUCONATE 2,000 MG in NACL 0.9% 100 ML IV ONE (20:00)
--- NOTE | 2018-07-27 07:11 | Hem/Onc Progress Note ---
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 on acyclovir allopurinol pain meds plan was for xgeva in past got zometa ( may 2018) in clinic wagon winder was 2.6 to 2.9 in recent past pt had BMBx in may 2018 plan was for daratumumab had given option of brielle to family HTN SCD - as anemia nephrology consult ivf admission status change from observation to admission tried to call grand son using pt phone and hospital phone - no respone 07/26/2018 myeloma - SFLCA in office was better in recent past was 115 in jan - 248 mid jun 2018 - 316 and jul 24 - 162 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 - acute on chronic kidney failure anemia - s/p prbc on hydration 07/27 - d/w dr sewell - once renal issue improves OP follow up tried to call grand son - no response - Patient Problems (1) Anemia Current Visit: Yes Status: Acute (2) Myeloma Current Visit: Yes Status: Acute Subjective Date of service: 07/27/18 Principal diagnosis: myeloma Interval history: d/w RN no bleeding Objective - Constitutional Vitals: Last Vital Signs Temp 98.1 F 07/26/18 23:40 Pulse 80 07/26/18 23:40 Resp 20 07/26/18 23:40 BP 153/71 07/26/18 23:40 Pulse Ox 97 07/26/18 23:40 Pain Intensity (0-10): denies any pain General appearance: no acute distress Performance status: 3-limited selfcare - EENT Eyes: EOM intact ENT: clear oral mucosa - Neck Neck: normal ROM - Respiratory Respiratory effort: Positive: normal Respiratory: bilateral: CTA - Cardiovascular Heart Sounds: Present: S1 & S2 Extremities: No edema - Gastrointestinal General gastrointestinal: Present: soft, non-tender Rectal Exam: deferred - Genitourinary Female genitourinary: Present: deferred - Integumentary Integumentary: warm - Musculoskeletal Musculoskeletal: generalized weakness - Neurologic Neurologic: moves all extremities - Labs Lab Results: Laboratory Results - last 24 hr 07/26/18 07/26/18 07/26/18 06:52 06:52 06:52 WBC 5.8 RBC 2.43 L Hgb 8.1 L Hct 25.1 L MCV 103 H MCH 33 H MCHC 32 RDW 23.2 H Plt Count 124 L Lymph % (Auto) 9.0 L Baso % (Auto) 0.1 Lymph # 0.5 L Sodium 139 Potassium 5.6 H Chloride 109.4 H Carbon Dioxide 13 L Anion Gap 22 BUN 67 H Creatinine 5.2 H Estimated GFR 8 BUN/Creatinine Ratio 13 Glucose 80 Calcium 8.9 Total Creatine Kinase 27 L PTH Intact 134.2 H 07/26/18 16:45 WBC RBC Hgb Hct MCV MCH MCHC RDW Plt Count Lymph % (Auto) Baso % (Auto) Lymph # Sodium 140 Potassium 6.0 H Chloride 109.3 H Carbon Dioxide 14 L Anion Gap 23 BUN 63 H Creatinine 4.9 H Estimated GFR 9 BUN/Creatinine Ratio 13 Glucose 181 H Calcium 8.8 Total Creatine Kinase PTH Intact Medications & Allergies - Medications Allergies/Adverse Reactions: Allergies No Known Allergies Allergy (Verified 12/11/16 20:57) Home Medications: Home Medications Medication Instructions Recorded Confirmed Last Taken Type Acyclovir 400 mg PO BID 07/25/18 07/25/18 Unknown History Losartan 50 mg PO DAILY 07/25/18 07/25/18 Unknown History Percocet 5/325 mg 1 tab PO Q4H PRN 07/25/18 07/25/18 Unknown History Protonix 40 mg PO DAILY 07/25/18 07/25/18 Unknown History Active Medications: Generic Name Dose Route Start Last Admin Trade Name Eddie PRN Reason Stop Dose Admin Acyclovir 400 mg 07/25/18 22:00 07/26/18 21:33 Zovirax PO 400 mg BID JOHNATHON Administration Allopurinol 300 mg 07/25/18 10:00 07/26/18 10:47 Zyloprim PO 300 mg QDAY JOHNATHON Administration Dexamethasone 20 mg 07/25/18 10:00 07/26/18 10:48 Decadron PO 07/28/18 23:59 20 mg Q24HR JOHNATHON Administration Sodium Bicarbonate 150 meq/ 1,150 mls @ 75 mls/hr 07/26/18 17:00 07/26/18 18:14 Dextrose IV 75 mls/hr DIRECT JOHNATHON Administration Insulin Human Regular 0 units 07/26/18 11:30 07/26/18 22:45 Humulin R SUB-Q 3 units ACHS JOHNATHON Administration Protocol Oxycodone/Acetaminophen 1 tab 07/25/18 18:37 Percocet 5/325 PO Q4H PRN Pain, Moderate (4-6) Pantoprazole Sodium 40 mg 07/26/18 10:00 07/26/18 10:47 Protonix PO 40 mg QDAY JOHNATHON Administration
[2018-07-27 08:05] LABS: Albumin 3.4 g/dL (3.9-5); Calcium 8.6 mg/dL (8.4-10.2)
[2018-07-27 08:07] LABS: Basophils % (Auto) 0.2 % (0.0-1.8); Hematocrit 26.7 % (30.3-42.9); Hemoglobin 8.8 gm/dl (10.1-14.3); Lymphocytes # (Auto) 0.6 K/mm3 (1.2-5.4); Lymphocytes % (Auto) 8.7 % (13.4-35.0); Mean Corpuscular HGB Conc 33 % (30-34); Mean Corpuscular Volume 102 fl (79-97); Monocytes # (Auto) 0.7 K/mm3 (0.0-0.8); Monocytes % (Auto) 10.5 % (0.0-7.3); Platelet Count 154 K/mm3 (140-440); Red Blood Count 2.61 M/mm3 (3.65-5.03)
[2018-07-27 08:09] LABS: Red Cell Distribution Width 23.5 % (13.2-15.2)
--- NOTE | 2018-07-27 08:59 | Progress Note ---
Assessment and Plan 1. Acute kidney injury: LIZETT superimposed on CKD stage 3 in the setting of Myeloma. ATN vs Myeloma kidney. Continue IV fluids. Renal function is improving. Renal US negative for hydro. Monitor renal function. Renal prognosis is guarded. Avoid nephrotoxic agents. 2. FEN: Persistent Hyperkalemia, improved now. Metabolic acidosis, improving with Sodium bicarbonate infusion. Monitor lytes. 3. Anemia: S/p PRBC. 4. Multiple Myeloma. 5. DM type 2. Subjective Date of service: 07/27/18 Principal diagnosis: myeloma anemia Interval history: Patient was seen and examined at the bedside. Objective - Vital Signs Vital signs: Vital Signs - 12hr 07/26/18 07/26/18 22:00 23:40 Temperature 98.1 F Pulse Rate 80 Respiratory 17 20 Rate Blood Pressure 153/71 O2 Sat by Pulse 97 Oximetry - General Appearance General appearance: well-developed, well-nourished, appears stated age, other (not in distress) EENT: ATNC, PERRL, mucous membranes moist Neck: supple Respiratory: Present: Clear to Ascultation Cardiology: regular, S1S2, no murmurs Gastrointestinal: normoactive bowel sounds, no tenderness, no distended Integumentary: no rash, warm and dry Neurologic: no focal deficit, no asterixis Musculoskeletal: other (no edema) Psychiatric: cooperative - Lab 07/27/18 07:24 07/27/18 07:24 Most recent lab results Calcium 8.6 mg/dL (8.4-10.2) 07/27/18 07:24 Phosphorus 5.80 mg/dL (2.5-4.5) H 07/25/18 09:07 Urine Creatinine 59.1 mg/dL (0.1-20.0) H 07/25/18 10:15 Urine Sodium 36 mmol/L 07/25/18 10:15 Medications & Allergies - Medications Allergies/Adverse Reactions: Allergies No Known Allergies Allergy (Verified 12/11/16 20:57) Home Medications: Home Medications Medication Instructions Recorded Confirmed Last Taken Type Acyclovir 400 mg PO BID 07/25/18 07/25/18 Unknown History Losartan 50 mg PO DAILY 07/25/18 07/25/18 Unknown History Percocet 5/325 mg 1 tab PO Q4H PRN 04/02/19 04/02/19 Unknown History Protonix 40 mg PO DAILY 07/25/18 07/25/18 Unknown History Active Medications: Generic Name Dose Route Start Last Admin Trade Name Freq PRN Reason Stop Dose Admin Acyclovir 400 mg 07/25/18 22:00 07/26/18 21:33 Zovirax PO 400 mg BID JOHNATHON Administration Allopurinol 300 mg 07/25/18 10:00 07/26/18 10:47 Zyloprim PO 300 mg QDAY JOHNATHON Administration Dexamethasone 20 mg 07/25/18 10:00 07/26/18 10:48 Decadron PO 07/28/18 23:59 20 mg Q24HR JOHNATHON Administration Sodium Bicarbonate 150 meq/ 1,150 mls @ 75 mls/hr 07/26/18 17:00 07/26/18 18:14 Dextrose IV 75 mls/hr DIRECT JOHNATHON Administration Insulin Human Regular 0 units 07/26/18 11:30 07/26/18 22:45 Humulin R SUB-Q 3 units ACHS JOHANTHON Administration Protocol Oxycodone/Acetaminophen 1 tab 07/25/18 18:37 Percocet 5/325 PO Q4H PRN Pain, Moderate (4-6) Pantoprazole Sodium 40 mg 07/26/18 10:00 07/26/18 10:47 Protonix PO 40 mg QDAY JOHNATHON Administration
--- NOTE | 2018-07-27 09:11 | Progress Note ---
Assessment and Plan Assessment and plan: --Anemia; requiring 2 units of PRBC transfusion Today hemoglobin is 8.8, closely monitor H&H transfuse additional as needed Hematology following --Myeloma; management per hematology oncology --Acute renal failure with tubular necrosis; Gentle IV hydration, nephrotoxins, nephrology following Creatinine level slowly trending down --Obesity; BMI 33.8, advised weight reduction and medically stable --DVT prophylaxis; SCDs Monitor closely and adjust the management as needed History Interval history: Patient seen and examined medical records reviewed Patient feels slightly better no new complaints Alert awake oriented Vital signs noted Hospitalist Physical - Constitutional Vitals: Temp Pulse Resp BP Pulse Ox 98.1 F 80 20 153/71 97 07/26/18 23:40 07/26/18 23:40 07/26/18 23:40 07/26/18 23:40 07/26/18 23:40 General appearance: Present: no acute distress, well-nourished - EENT Eyes: Present: PERRL, EOM intact - Neck Neck: Present: supple, normal ROM - Respiratory Respiratory effort: normal Respiratory: bilateral: diminished, negative: rales, rhonchi, wheezing - Cardiovascular Rhythm: regular Heart Sounds: Present: S1 & S2 - Extremities Extremities: no ischemia, No edema - Abdominal General gastrointestinal: soft, non-tender, non-distended, normal bowel sounds - Integumentary Integumentary: Present: clear, warm - Psychiatric Psychiatric: appropriate mood/affect, cooperative - Neurologic Neurologic: CNII-XII intact, moves all extremities Results - Labs CBC & Chem 7: 07/28/18 04:29 07/28/18 04:29 Labs: Laboratory Last Values WBC 6.6 K/mm3 (4.5-11.0) 07/27/18 07:24 RBC 2.61 M/mm3 (3.65-5.03) L 07/27/18 07:24 Hgb 8.8 gm/dl (10.1-14.3) L 07/27/18 07:24 Hct 26.7 % (30.3-42.9) L 07/27/18 07:24 MCV 102 fl (79-97) H 07/27/18 07:24 MCH 34 pg (28-32) H 07/27/18 07:24 MCHC 33 % (30-34) 07/27/18 07:24 RDW 23.5 % (13.2-15.2) H 07/27/18 07:24 Plt Count 154 K/mm3 (140-440) 07/27/18 07:24 Lymph % (Auto) 8.7 % (13.4-35.0) L 07/27/18 07:24 [place] % (Auto) 10.5 % (0.0-7.3) H 07/27/18 07:24 Eos % (Auto) 0.0 % (0.0-4.3) 07/27/18 07:24 Baso % (Auto) 0.2 % (0.0-1.8) 07/27/18 07:24 Lymph # 0.6 K/mm3 (1.2-5.4) L 07/27/18 07:24 [place] # 0.7 K/mm3 (0.0-0.8) 07/27/18 07:24 Eos # 0.0 K/mm3 (0.0-0.4) 07/27/18 07:24 Baso # 0.0 K/mm3 (0.0-0.1) 07/27/18 07:24 Add Manual Diff Complete 07/24/18 14:04 Total Counted 100 07/24/18 14:04 Seg Neutrophils % 80.6 % (40.0-70.0) H 07/27/18 07:24 Seg Neuts % (Manual) 73.0 % (40.0-70.0) H 07/24/18 14:04 Band Neutrophils % 0 % 07/24/18 14:04 Lymphocytes % (Manual) 15.0 % (13.4-35.0) 07/24/18 14:04 Reactive Lymphs % (Man) 0 % 07/24/18 14:04 Monocytes % (Manual) 12.0 % (0.0-7.3) H 07/24/18 14:04 Eosinophils % (Manual) 0 % (0.0-4.3) 07/24/18 14:04 Basophils % (Manual) 0 % (0.0-1.8) 07/24/18 14:04 Metamyelocytes % 0 % 07/24/18 14:04 Myelocytes % 0 % 07/24/18 14:04 Promyelocytes % 0 % 07/24/18 14:04 Blast Cells % 0 % 07/24/18 14:04 Nucleated RBC % Not Reportable 07/24/18 14:04 Seg Neutrophils # 5.3 K/mm3 (1.8-7.7) 07/27/18 07:24 Seg Neutrophils # Man 5.2 K/mm3 (1.8-7.7) 07/24/18 14:04 Band Neutrophils # 0.0 K/mm3 07/24/18 14:04 Lymphocytes # (Manual) 1.1 K/mm3 (1.2-5.4) L 07/24/18 14:04 Abs React Lymphs (Man) 0.0 K/mm3 07/24/18 14:04 Monocytes # (Manual) 0.9 K/mm3 (0.0-0.8) H 07/24/18 14:04 Eosinophils # (Manual) 0.0 K/mm3 (0.0-0.4) 07/24/18 14:04 Basophils # (Manual) 0.0 K/mm3 (0.0-0.1) 07/24/18 14:04 Metamyelocytes # 0.0 K/mm3 07/24/18 14:04 Myelocytes # 0.0 K/mm3 07/24/18 14:04 Promyelocytes # 0.0 K/mm3 07/24/18 14:04 Blast Cells # 0.0 K/mm3 07/24/18 14:04 WBC Morphology Not Reportable 07/24/18 14:04 Hypersegmented Neuts Not Reportable 07/24/18 14:04 Hyposegmented Neuts Not Reportable 07/24/18 14:04 Hypogranular Neuts Not Reportable 07/24/18 14:04 Smudge Cells Not Reportable 07/24/18 14:04 Toxic Granulation Not Reportable 07/24/18 14:04 Toxic Vacuolation Not Reportable 07/24/18 14:04 Dohle Bodies Not Reportable 07/24/18 14:04 Pelger-Huet Anomaly Not Reportable 07/24/18 14:04 Amy Rods Not Reportable 07/24/18 14:04 Platelet Estimate Not Reportable 07/24/18 14:04 Clumped Platelets Not Reportable 07/24/18 14:04 Plt Clumps, EDTA Not Reportable 07/24/18 14:04 Large Platelets Not Reportable 07/24/18 14:04 Giant Platelets Not Reportable 07/24/18 14:04 Platelet Satelliting Not Reportable 07/24/18 14:04 Plt Morphology Comment Not Reportable 07/24/18 14:04 RBC Morphology Normal 07/24/18 14:04 Dimorphic RBCs Not Reportable 07/24/18 14:04 Polychromasia Not Reportable 07/24/18 14:04 Hypochromasia Not Reportable 07/24/18 14:04 Poikilocytosis Not Reportable 07/24/18 14:04 Anisocytosis Not Reportable 07/24/18 14:04 Microcytosis Not Reportable 07/24/18 14:04 Macrocytosis Not Reportable 07/24/18 14:04 Spherocytes Not Reportable 07/24/18 14:04 Pappenheimer Bodies Not Reportable 07/24/18 14:04 Sickle Cells Not Reportable 07/24/18 14:04 Target Cells Not Reportable 07/24/18 14:04 Tear Drop Cells Not Reportable 07/24/18 14:04 Ovalocytes Not Reportable 07/24/18 14:04 Helmet Cells Not Reportable 07/24/18 14:04 [place] Bodies Not Reportable 07/24/18 14:04 [place] Rings Not Reportable 07/24/18 14:04 [place] Cells Not Reportable 07/24/18 14:04 Bite Cells Not Reportable 07/24/18 14:04 Crenated Cell Not Reportable 07/24/18 14:04 Elliptocytes Not Reportable 07/24/18 14:04 Acanthocytes (Spur) Not Reportable 07/24/18 14:04 Rouleaux Not Reportable 07/24/18 14:04 Hemoglobin C Crystals Not Reportable 07/24/18 14:04 Schistocytes Not Reportable 07/24/18 14:04 Malaria parasites Not Reportable 07/24/18 14:04 Osmany Bodies Not Reportable 07/24/18 14:04 Hem Pathologist Commnt No 07/24/18 14:04 PT 12.4 Sec. (12.2-14.9) 07/24/18 14:04 INR 0.87 (0.87-1.13) 07/24/18 14:04 APTT 22.3 Sec. (24.2-36.6) L 07/24/18 14:04 Sodium 141 mmol/L (137-145) 07/27/18 07:24 Potassium 4.2 mmol/L (3.6-5.0) D 07/27/18 07:24 Chloride 106.9 mmol/L (98-107) 07/27/18 07:24 Carbon Dioxide 17 mmol/L (22-30) L 07/27/18 07:24 Anion Gap 21 mmol/L 07/27/18 07:24 BUN 61 mg/dL (7-17) H 07/27/18 07:24 Creatinine 4.5 mg/dL (0.7-1.2) H 07/27/18 07:24 Estimated GFR 9 ml/min 07/27/18 07:24 BUN/Creatinine Ratio 14 % 07/27/18 07:24 Glucose 118 mg/dL (65-100) H 07/27/18 07:24 Calcium 8.6 mg/dL (8.4-10.2) 07/27/18 07:24 Phosphorus 5.80 mg/dL (2.5-4.5) H 07/25/18 09:07 Total Bilirubin 0.40 mg/dL (0.1-1.2) 07/27/18 07:24 AST 89 units/L (5-40) H 07/27/18 07:24 ALT 60 units/L (7-56) H 07/27/18 07:24 Alkaline Phosphatase 303 units/L (35-129) H 07/27/18 07:24 Total Creatine Kinase 27 units/L (30-135) L 07/26/18 06:52 Total Protein 8.0 g/dL (6.3-8.2) 07/27/18 07:24 Albumin 3.4 g/dL (3.9-5) L 07/27/18 07:24 Albumin/Globulin Ratio 0.7 % 07/27/18 07:24 PTH Intact 134.2 pg/mL (15-65) H 07/26/18 06:52 Urine Color Straw (Yellow) 07/25/18 10:15 Urine Turbidity Clear (Clear) 07/25/18 10:15 Urine pH 6.0 (5.0-7.0) 07/25/18 10:15 Ur Specific [place] 1.008 (1.003-1.030) 07/25/18 10:15 Urine Protein 30 mg/dl mg/dL (Negative) 07/25/18 10:15 Urine Glucose (UA) Neg mg/dL (Negative) 07/25/18 10:15 Urine Ketones Neg mg/dL (Negative) 07/25/18 10:15 Urine Blood Neg (Negative) 07/25/18 10:15 Urine Nitrite Neg (Negative) 07/25/18 10:15 Urine Bilirubin Neg (Negative) 07/25/18 10:15 Urine Urobilinogen < 2.0 mg/dL (<2.0) 07/25/18 10:15 Ur Leukocyte Esterase Tr (Negative) 07/25/18 10:15 Urine WBC (Auto) 2.0 /HPF (0.0-6.0) 07/25/18 10:15 Urine RBC (Auto) 5.0 /HPF (0.0-6.0) 07/25/18 10:15 U Epithel Cells (Auto) 1.0 /HPF (0-13.0) 07/25/18 10:15 Urine Bacteria (Auto) 1+ /HPF (Negative) 07/25/18 10:15 Urine Mucus Few /HPF 07/25/18 10:15 Urine Eosinophils None seen (None Seen) 07/25/18 10:15 Urine Creatinine 59.1 mg/dL (0.1-20.0) H 07/25/18 10:15 Urine Sodium 36 mmol/L 07/25/18 10:15 Blood Type O POSITIVE 07/24/18 14:04 Antibody Screen Negative 07/24/18 14:04 Crossmatch See Detail 07/24/18 14:04 Active Medications - Current Medications Current Medications: Generic Name Dose Route Start Last Admin Trade Name Freq PRN Reason Stop Dose Admin Acyclovir 400 mg 07/25/18 22:00 07/26/18 21:33 Zovirax PO 400 mg BID JOHNATHON Administration Allopurinol 300 mg 07/25/18 10:00 07/26/18 10:47 Zyloprim PO 300 mg QDAY JOHNATHON Administration Dexamethasone 20 mg 07/25/18 10:00 07/26/18 10:48 Decadron PO 07/28/18 23:59 20 mg Q24HR JOHNATHON Administration Sodium Bicarbonate 150 meq/ 1,150 mls @ 75 mls/hr 07/26/18 17:00 07/26/18 18:14 Dextrose IV 75 mls/hr DIRECT JOHNATHON Administration Insulin Human Regular 0 units 07/26/18 11:30 07/26/18 22:45 Humulin R SUB-Q 3 units ACHS JOHNATHON Administration Protocol Oxycodone/Acetaminophen 1 tab 07/25/18 18:37 Percocet 5/325 PO Q4H PRN Pain, Moderate (4-6) Pantoprazole Sodium 40 mg 07/26/18 10:00 07/26/18 10:47 Protonix PO 40 mg QDAY JOHNATHON Administration
[2018-07-27] MEDS: HumuLIN R SUB-Q SCH ×4 (09:42→21:26)
[2018-07-27] MEDS: SODIUM BICARBONATE 150 MEQ in D5W 1,000 ML IV SCH (10:52)
[2018-07-27] MEDS: ZOVIRAX PO SCH ×2 (10:53→21:25)
[2018-07-27] MEDS: PROTONIX PO SCH (10:53)
[2018-07-27] MEDS: ZYLOPRIM PO SCH (10:53)
[2018-07-27] MEDS: DECADRON PO SCH (10:53)
[2018-07-28] MEDS: SODIUM BICARBONATE 150 MEQ in D5W 1,000 ML IV SCH ×2 (03:58→22:45)
[2018-07-28 05:17] LABS: Basophils % (Auto) 0.2 % (0.0-1.8); Hematocrit 24.8 % (30.3-42.9); Hemoglobin 8.4 gm/dl (10.1-14.3); Lymphocytes # (Auto) 0.6 K/mm3 (1.2-5.4); Lymphocytes % (Auto) 9.7 % (13.4-35.0); Mean Corpuscular HGB Conc 34 % (30-34); Mean Corpuscular Volume 99 fl (79-97); Monocytes # (Auto) 0.5 K/mm3 (0.0-0.8); Monocytes % (Auto) 9.2 % (0.0-7.3); Platelet Count 155 K/mm3 (140-440)
[2018-07-28 05:40] LABS: Calcium 7.7 mg/dL (8.4-10.2)
--- NOTE | 2018-07-28 07:46 | Progress Note ---
Assessment and Plan 1. Acute kidney injury: LIZETT superimposed on CKD stage 3 in the setting of Myeloma. ATN vs Myeloma kidney. Continue IV fluids. Renal function is improving. Renal US negative for hydro. Monitor renal function. Renal prognosis is guarded. Avoid nephrotoxic agents. 2. FEN: Hyperkalemia, improved. Metabolic acidosis, improving with Sodium bicarbonate infusion. Monitor lytes. 3. Anemia: S/p PRBC. 4. Multiple Myeloma. 5. HTN: Started on Amlodipine. Decreased IV fluids. 6. DM type 2. Subjective Date of service: 07/28/18 Principal diagnosis: myeloma anemia Interval history: Patient was seen and examined at the bedside. Objective - Vital Signs Vital signs: Vital Signs - 12hr 07/27/18 07/27/18 07/28/18 20:53 22:39 04:20 Temperature 98.0 F 98.1 F Pulse Rate 69 77 Pulse Rate [ 90 Apical] Respiratory 18 24 18 Rate Blood Pressure 161/75 160/83 O2 Sat by Pulse 96 97 Oximetry - General Appearance General appearance: well-developed, well-nourished, appears stated age, other (not in distress) EENT: ATNC, PERRL, mucous membranes moist, hearing intact, vision intact Neck: supple Respiratory: Present: Clear to Ascultation Cardiology: regular, S1S2, no murmurs Gastrointestinal: normoactive bowel sounds, no tenderness, no distended Integumentary: no rash, warm and dry Neurologic: no asterixis, other (able to move all 4 extremities) Musculoskeletal: other (trace pedal edema noted) - Lab 07/28/18 04:29 07/28/18 04:29 Most recent lab results Calcium 7.7 mg/dL (8.4-10.2) L 07/28/18 04:29 Phosphorus 5.80 mg/dL (2.5-4.5) H 07/25/18 09:07 Urine Creatinine 59.1 mg/dL (0.1-20.0) H 07/25/18 10:15 Urine Sodium 36 mmol/L 07/25/18 10:15 Medications & Allergies - Medications Allergies/Adverse Reactions: Allergies No Known Allergies Allergy (Verified 12/11/16 20:57) Home Medications: Home Medications Medication Instructions Recorded Confirmed Last Taken Type Acyclovir 400 mg PO BID 07/25/18 07/25/18 Unknown History Losartan 50 mg PO DAILY 07/25/18 07/25/18 Unknown History Percocet 5/325 mg 1 tab PO Q4H PRN 07/25/18 07/25/18 Unknown History Protonix 40 mg PO DAILY 07/25/18 07/25/18 Unknown History Active Medications: Generic Name Dose Route Start Last Admin Trade Name Freq PRN Reason Stop Dose Admin Acyclovir 400 mg 07/25/18 22:00 07/27/18 21:25 Zovirax PO 400 mg BID JOHNATHON Administration Allopurinol 300 mg 07/25/18 10:00 07/27/18 10:53 Zyloprim PO 300 mg QDAY JOHNATHON Administration Dexamethasone 20 mg 07/25/18 10:00 07/27/18 10:53 Decadron PO 07/28/18 23:59 20 mg Q24HR JOHNATHON Administration Sodium Bicarbonate 150 meq/ 1,150 mls @ 75 mls/hr 07/26/18 17:00 07/28/18 03:58 Dextrose IV 75 mls/hr DIRECT JOHNATHON Administration Insulin Human Regular 0 units 07/26/18 11:30 07/27/18 21:26 Humulin R SUB-Q 3 units ACHS JOHNATHON Administration Protocol Oxycodone/Acetaminophen 1 tab 07/25/18 18:37 Percocet 5/325 PO Q4H PRN Pain, Moderate (4-6) Pantoprazole Sodium 40 mg 07/26/18 10:00 07/27/18 10:53 Protonix PO 40 mg QDAY JOHNATHON Administration
[2018-07-28] MEDS: HumuLIN R SUB-Q SCH ×4 (08:21→23:35)
[2018-07-28] MEDS: PROTONIX PO SCH (09:35)
[2018-07-28] MEDS: ZOVIRAX PO SCH ×2 (09:35→22:45)
[2018-07-28] MEDS: ZYLOPRIM PO SCH (09:38)
[2018-07-28] MEDS: DECADRON PO SCH (09:39)
--- NOTE | 2018-07-28 11:14 | Progress Note ---
Assessment and Plan Assessment and plan: --Acute renal failure with tubular necrosis; creatinine level trending down Continue IV hydration, avoid nephrotoxins, nephrology following --Anemia; requiring 2 units of PRBC transfusion Today hemoglobin is 8.8- 8.4. monitor H&H transfuse additional as needed Hematology following --Myeloma; management per hematology oncology --Obesity; BMI 36.1, advised weight reduction when medically stable --DVT prophylaxis; SCDs Monitor closely and adjust the management as needed plan of care reviewed with the patient, family member, and her nurse History Interval history: Patient seen and examined medical records reviewed, family member at the bedside No new events reported by the nursing staff Alert and awake, vital signs reviewed Not in acute distress Hospitalist Physical - Constitutional Vitals: Temp Pulse Resp BP Pulse Ox 98.1 F 77 18 160/83 97 07/28/18 04:20 07/28/18 04:20 07/28/18 04:20 07/28/18 04:20 07/28/18 04:20 General appearance: Present: no acute distress, well-nourished, obese - EENT Eyes: Present: PERRL, EOM intact - Neck Neck: Present: supple, normal ROM - Respiratory Respiratory effort: normal Respiratory: bilateral: diminished, negative: rales, rhonchi, wheezing - Cardiovascular Rhythm: regular Heart Sounds: Present: S1 & S2 - Extremities Extremities: no ischemia, No edema - Abdominal General gastrointestinal: soft, non-tender, non-distended, normal bowel sounds - Integumentary Integumentary: Present: clear, warm - Psychiatric Psychiatric: appropriate mood/affect, cooperative - Neurologic Neurologic: moves all extremities Results - Labs CBC & Chem 7: 07/28/18 04:29 07/28/18 04:29 Labs: Laboratory Last Values WBC 6.0 K/mm3 (4.5-11.0) 07/28/18 04:29 RBC 2.50 M/mm3 (3.65-5.03) L 07/28/18 04:29 Hgb 8.4 gm/dl (10.1-14.3) L 07/28/18 04:29 Hct 24.8 % (30.3-42.9) L 07/28/18 04:29 MCV 99 fl (79-97) H 07/28/18 04:29 MCH 34 pg (28-32) H 07/28/18 04:29 MCHC 34 % (30-34) 07/28/18 04:29 RDW 23.0 % (13.2-15.2) H 07/28/18 04:29 Plt Count 155 K/mm3 (140-440) 07/28/18 04:29 Lymph % (Auto) 9.7 % (13.4-35.0) L 07/28/18 04:29 [place] % (Auto) 9.2 % (0.0-7.3) H 07/28/18 04:29 Eos % (Auto) 0.0 % (0.0-4.3) 07/28/18 04: Baso % (Auto) 0.2 % (0.0-1.8) 07/28/18 04:29 Lymph # 0.6 K/mm3 (1.2-5.4) L 07/28/18 04:29 [place] # 0.5 K/mm3 (0.0-0.8) 07/28/18 04: Eos # 0.0 K/mm3 (0.0-0.4) 07/28/18 04: Baso # 0.0 K/mm3 (0.0-0.1) 07/28/18 04:29 Add Manual Diff Complete 07/24/18 14:04 Total Counted 100 07/24/18 14:04 Seg Neutrophils % 80.9 % (40.0-70.0) H 07/28/18 04:29 Seg Neuts % (Manual) 73.0 % (40.0-70.0) H 07/24/18 14:04 Band Neutrophils % 0 % 07/24/18 14:04 Lymphocytes % (Manual) 15.0 % (13.4-35.0) 07/24/18 14:04 Reactive Lymphs % (Man) 0 % 07/24/18 14:04 Monocytes % (Manual) 12.0 % (0.0-7.3) H 07/24/18 14:04 Eosinophils % (Manual) 0 % (0.0-4.3) 07/24/18 14:04 Basophils % (Manual) 0 % (0.0-1.8) 07/24/18 14:04 Metamyelocytes % 0 % 07/24/18 14:04 Myelocytes % 0 % 07/24/18 14:04 Promyelocytes % 0 % 07/24/18 14:04 Blast Cells % 0 % 07/24/18 14:04 Nucleated RBC % Not Reportable 07/24/18 14:04 Seg Neutrophils # 4.9 K/mm3 (1.8-7.7) 07/28/18 04:29 Seg Neutrophils # Man 5.2 K/mm3 (1.8-7.7) 07/24/18 14:04 Band Neutrophils # 0.0 K/mm3 07/24/18 14:04 Lymphocytes # (Manual) 1.1 K/mm3 (1.2-5.4) L 07/24/18 14:04 Abs React Lymphs (Man) 0.0 K/mm3 07/24/18 14:04 Monocytes # (Manual) 0.9 K/mm3 (0.0-0.8) H 07/24/18 14:04 Eosinophils # (Manual) 0.0 K/mm3 (0.0-0.4) 07/24/18 14:04 Basophils # (Manual) 0.0 K/mm3 (0.0-0.1) 07/24/18 14:04 Metamyelocytes # 0.0 K/mm3 07/24/18 14:04 Myelocytes # 0.0 K/mm3 07/24/18 14:04 Promyelocytes # 0.0 K/mm3 07/24/18 14:04 Blast Cells # 0.0 K/mm3 07/24/18 14:04 WBC Morphology Not Reportable 07/24/18 14:04 Hypersegmented Neuts Not Reportable 07/24/18 14:04 Hyposegmented Neuts Not Reportable 07/24/18 14:04 Hypogranular Neuts Not Reportable 07/24/18 14:04 Smudge Cells Not Reportable 07/24/18 14:04 Toxic Granulation Not Reportable 07/24/18 14:04 Toxic Vacuolation Not Reportable 07/24/18 14:04 Dohle Bodies Not Reportable 07/24/18 14:04 Pelger-Huet Anomaly Not Reportable 07/24/18 14:04 Amy Rods Not Reportable 07/24/18 14:04 Platelet Estimate Not Reportable 07/24/18 14:04 Clumped Platelets Not Reportable 07/24/18 14:04 Plt Clumps, EDTA Not Reportable 07/24/18 14:04 Large Platelets Not Reportable 07/24/18 14:04 Giant Platelets Not Reportable 07/24/18 14:04 Platelet Satelliting Not Reportable 07/24/18 14:04 Plt Morphology Comment Not Reportable 07/24/18 14:04 RBC Morphology Normal 07/24/18 14:04 Dimorphic RBCs Not Reportable 07/24/18 14:04 Polychromasia Not Reportable 07/24/18 14:04 Hypochromasia Not Reportable 07/24/18 14:04 Poikilocytosis Not Reportable 07/24/18 14:04 Anisocytosis Not Reportable 07/24/18 14:04 Microcytosis Not Reportable 07/24/18 14:04 Macrocytosis Not Reportable 07/24/18 14:04 Spherocytes Not Reportable 07/24/18 14:04 Pappenheimer Bodies Not Reportable 07/24/18 14:04 Sickle Cells Not Reportable 07/24/18 14:04 Target Cells Not Reportable 07/24/18 14:04 Tear Drop Cells Not Reportable 07/24/18 14:04 Ovalocytes Not Reportable 07/24/18 14:04 Helmet Cells Not Reportable 07/24/18 14:04 [place] Bodies Not Reportable 07/24/18 14:04 [place] Rings Not Reportable 07/24/18 14:04 [place] Cells Not Reportable 07/24/18 14:04 Bite Cells Not Reportable 07/24/18 14:04 Crenated Cell Not Reportable 07/24/18 14:04 Elliptocytes Not Reportable 07/24/18 14:04 Acanthocytes (Spur) Not Reportable 07/24/18 14:04 Rouleaux Not Reportable 07/24/18 14:04 Hemoglobin C Crystals Not Reportable 07/24/18 14:04 Schistocytes Not Reportable 07/24/18 14:04 Malaria parasites Not Reportable 07/24/18 14:04 Osmany Bodies Not Reportable 07/24/18 14:04 Hem Pathologist Commnt No 07/24/18 14:04 PT 12.4 Sec. (12.2-14.9) 07/24/18 14:04 INR 0.87 (0.87-1.13) 07/24/18 14:04 APTT 22.3 Sec. (24.2-36.6) L 07/24/18 14:04 Sodium 142 mmol/L (137-145) 07/28/18 04:29 Potassium 3.7 mmol/L (3.6-5.0) 07/28/18 04:29 Chloride 105.5 mmol/L (98-107) 07/28/18 04:29 Carbon Dioxide 22 mmol/L (22-30) 07/28/18 04:29 Anion Gap 18 mmol/L 07/28/18 04:29 BUN 62 mg/dL (7-17) H 07/28/18 04:29 Creatinine 4.2 mg/dL (0.7-1.2) H 07/28/18 04:29 Estimated GFR 10 ml/min 07/28/18 04:29 BUN/Creatinine Ratio 15 % 07/28/18 04:29 Glucose 123 mg/dL (65-100) H 07/28/18 04:29 Calcium 7.7 mg/dL (8.4-10.2) L 07/28/18 04:29 Phosphorus 5.80 mg/dL (2.5-4.5) H 07/25/18 09:07 Total Bilirubin 0.40 mg/dL (0.1-1.2) 07/27/18 07:24 AST 89 units/L (5-40) H 07/27/18 07:24 ALT 60 units/L (7-56) H 07/27/18 07:24 Alkaline Phosphatase 303 units/L (35-129) H 07/27/18 07:24 Total Creatine Kinase 26 units/L (30-135) L 07/28/18 04:29 Total Protein 8.0 g/dL (6.3-8.2) 07/27/18 07:24 Albumin 3.4 g/dL (3.9-5) L 07/27/18 07:24 Albumin/Globulin Ratio 0.7 % 07/27/18 07:24 Amylase 56 units/L (27-131) 07/28/18 04:29 Lipase 37 units/L (13-60) 07/28/18 04:29 PTH Intact 134.2 pg/mL (15-65) H 07/26/18 06:52 Urine Color Straw (Yellow) 07/25/18 10:15 Urine Turbidity Clear (Clear) 07/25/18 10:15 Urine pH 6.0 (5.0-7.0) 07/25/18 10:15 Ur Specific [place] 1.008 (1.003-1.030) 07/25/18 10:15 Urine Protein 30 mg/dl mg/dL (Negative) 07/25/18 10:15 Urine Glucose (UA) Neg mg/dL (Negative) 07/25/18 10:15 Urine Ketones Neg mg/dL (Negative) 07/25/18 10:15 Urine Blood Neg (Negative) 07/25/18 10:15 Urine Nitrite Neg (Negative) 07/25/18 10:15 Urine Bilirubin Neg (Negative) 07/25/18 10:15 Urine Urobilinogen < 2.0 mg/dL (<2.0) 07/25/18 10:15 Ur Leukocyte Esterase Tr (Negative) 07/25/18 10:15 Urine WBC (Auto) 2.0 /HPF (0.0-6.0) 07/25/18 10:15 Urine RBC (Auto) 5.0 /HPF (0.0-6.0) 07/25/18 10:15 U Epithel Cells (Auto) 1.0 /HPF (0-13.0) 07/25/18 10:15 Urine Bacteria (Auto) 1+ /HPF (Negative) 07/25/18 10:15 Urine Mucus Few /HPF 07/25/18 10:15 Urine Eosinophils None seen (None Seen) 07/25/18 10:15 Urine Creatinine 59.1 mg/dL (0.1-20.0) H 07/25/18 10:15 Urine Sodium 36 mmol/L 07/25/18 10:15 Blood Type O POSITIVE 07/24/18 14:04 Antibody Screen Negative 07/24/18 14:04 Crossmatch See Detail 07/24/18 14:04 Active Medications - Current Medications Current Medications: Generic Name Dose Route Start Last Admin Trade Name Freq PRN Reason Stop Dose Admin Acyclovir 400 mg 07/25/18 22:00 07/28/18 09:35 Zovirax PO 400 mg BID JOHNATHON Administration Allopurinol 300 mg 07/25/18 10:00 04/05/19 09:38 Zyloprim PO 300 mg QDAY JOHNATHON Administration Amlodipine Besylate 10 mg 07/28/18 12:00 Norvasc PO QDAY JOHNATHON Dexamethasone 20 mg 07/25/18 10:00 07/28/18 09:39 Decadron PO 07/28/18 23:59 20 mg Q24HR JOHNATHON Administration Sodium Bicarbonate 150 meq/ 1,150 mls @ 30 mls/hr 07/26/18 17:00 07/28/18 03:58 Dextrose IV 75 mls/hr DIRECT JOHNATHON Administration Insulin Human Regular 0 units 07/26/18 11:30 07/28/18 08:21 Humulin R SUB-Q Not Given ACHS JOHNATHON Protocol Oxycodone/Acetaminophen 1 tab 07/25/18 18:37 Percocet 5/325 PO Q4H PRN Pain, Moderate (4-6) Pantoprazole Sodium 40 mg 07/26/18 10:00 07/27/18 10:53 Protonix PO 40 mg QDAY JOHNATHON Administration
[2018-07-28] MEDS: NORVASC PO SCH (14:25)
[2018-07-29 05:28] LABS: Basophils % (Auto) 0.1 % (0.0-1.8); Hematocrit 26.9 % (30.3-42.9); Hemoglobin 9.1 gm/dl (10.1-14.3); Lymphocytes # (Auto) 0.6 K/mm3 (1.2-5.4); Lymphocytes % (Auto) 9.5 % (13.4-35.0); Mean Corpuscular HGB Conc 34 % (30-34); Mean Corpuscular Volume 100 fl (79-97); Monocytes # (Auto) 0.7 K/mm3 (0.0-0.8); Platelet Count 181 K/mm3 (140-440); Red Blood Count 2.69 M/mm3 (3.65-5.03)
[2018-07-29 05:36] LABS: Red Cell Distribution Width 22.2 % (13.2-15.2)
[2018-07-29 05:48] LABS: Calcium 7.7 mg/dL (8.4-10.2)
[2018-07-29] MEDS ORDERED: PROCRIT SUB-Q ONE (07:03)
--- NOTE | 2018-07-29 07:05 | Hem/Onc Progress Note ---
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 tool was 2.6 to 2.9 in recent past pt had BMBx in may 2018 plan was for daratumumab had given option of brielle to family HTN SCD - as anemia nephrology consult ivf admission status change from observation to admission tried to call grand son using pt phone and hospital phone - no respone 07/26/2018 myeloma - SFLCA in office was better in recent past was 115 in jan - 248 mid jun 2018 - 316 and jul 24 - 162 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 - acute on chronic kidney failure anemia - s/p prbc on hydration 07/27 - d/w dr sewell - once renal issue improves OP follow up tried to call grand son - no response 07/29 - called grandson - pt doing ok grinder operator surface tool better procrit today d/w RN OP follow up an option - Patient Problems (1) Anemia Current Visit: Yes Status: Acute (2) Myeloma Current Visit: Yes Status: Acute Subjective Date of service: 07/29/18 Principal diagnosis: myeloma - anemia Interval history: callled grandson pt wants to go home Objective - Constitutional Vitals: Last Vital Signs Temp 97.6 F 07/29/18 05:21 Pulse 76 07/29/18 05:21 Resp 20 07/29/18 05:21 BP 149/73 07/29/18 05:21 Pulse Ox 96 07/29/18 05:21 Pain Intensity (0-10): denies any pain General appearance: no acute distress Performance status: 3-limited selfcare - EENT Eyes: EOM intact ENT: clear oral mucosa Lymph node exam: negative cervical - Neck Neck: normal ROM - Respiratory Respiratory effort: Positive: normal Respiratory: bilateral: CTA - Cardiovascular Heart Sounds: Present: S1 & S2 Extremities: No edema - Gastrointestinal General gastrointestinal: Present: soft, non-tender Rectal Exam: deferred - Genitourinary Female genitourinary: Present: deferred - Integumentary Integumentary: warm - Musculoskeletal Musculoskeletal: generalized weakness - Neurologic Neurologic: moves all extremities - Labs Lab Results: Laboratory Results - last 24 hr 07/29/18 07/29/18 05:12 05:12 WBC 6.4 RBC 2.69 L Hgb 9.1 L Hct 26.9 L MCV 100 H MCH 34 H MCHC 34 RDW 22.2 H Plt Count 181 Lymph % (Auto) 9.5 L Randolph % (Auto) 11.0 H Eos % (Auto) 0.0 Baso % (Auto) 0.1 Lymph # 0.6 L Randolph # 0.7 Eos # 0.0 Baso # 0.0 Seg Neutrophils % 79.4 H Seg Neutrophils # 5.1 Sodium 144 Potassium 3.5 L Chloride 103.0 Carbon Dioxide 24 Anion Gap 21 BUN 60 H Creatinine 3.7 H Estimated GFR 12 BUN/Creatinine Ratio 16 Glucose 123 H Calcium 7.7 L Magnesium 1.70 Medications & Allergies - Medications Allergies/Adverse Reactions: Allergies No Known Allergies Allergy (Verified 12/11/16 20:57) Home Medications: Home Medications Medication Instructions Recorded Confirmed Last Taken Type Acyclovir 400 mg PO BID 07/25/18 07/25/18 Unknown History Losartan 50 mg PO DAILY 07/25/18 07/25/18 Unknown History Percocet 5/325 mg 1 tab PO Q4H PRN 07/25/18 07/25/18 Unknown History Protonix 40 mg PO DAILY 07/25/18 07/25/18 Unknown History Active Medications: Generic Name Dose Route Start Last Admin Trade Name Pacoq PRN Reason Stop Dose Admin Acyclovir 400 mg 07/25/18 22:00 07/28/18 22:45 Zovirax PO 400 mg BID JOHNATHON Administration Allopurinol 100 mg 07/29/18 10:00 Zyloprim PO QDAY JOHNATHON Amlodipine Besylate 10 mg 07/28/18 12:00 07/28/18 14:25 Norvasc PO 10 mg QDAY JOHNATHON Administration Epoetin Lopez 20,000 unit 07/29/18 07:03 Procrit SUB-Q 07/29/18 07:04 [facility] ONE Sodium Bicarbonate 150 meq/ 1,150 mls @ 30 mls/hr 07/26/18 17:00 07/28/18 22:45 Dextrose IV 75 mls/hr DIRECT JOHNATHON Administration Insulin Human Regular 0 units 07/26/18 11:30 07/28/18 23:35 Humulin R SUB-Q Not Given ACHS JOHNATHON Protocol Oxycodone/Acetaminophen 1 tab 07/25/18 18:37 Percocet 5/325 PO Q4H PRN Pain, Moderate (4-6) Pantoprazole Sodium 40 mg 07/26/18 10:00 07/28/18 09:35 Protonix PO 40 mg QDAY JOHNATHON Administration
[2018-07-29] MEDS: HumuLIN R SUB-Q SCH ×4 (07:30→22:48)
--- NOTE | 2018-07-29 07:38 | Progress Note ---
Assessment and Plan 1. Acute kidney injury: LIZETT superimposed on CKD stage 3 in the setting of Myeloma. ATN vs Myeloma kidney. Continue IV fluids. Renal function is improving. Renal US negative for hydro. Monitor renal function. Renal prognosis is guarded. Avoid nephrotoxic agents. 2. FEN: Hyperkalemia, improved. Metabolic acidosis, improving with Sodium bicarbonate infusion. Monitor lytes. 3. Anemia: S/p PRBC. 4. Multiple Myeloma. 5. HTN: Continue Amlodipine. BP is better. 6. DM type 2. Subjective Date of service: 07/29/18 Principal diagnosis: myeloma Interval history: Patient was seen and examined at the bedside. Objective - Vital Signs Vital signs: Vital Signs - 12hr 07/28/18 07/29/18 22:31 05:21 Temperature 98.5 F 97.6 F Pulse Rate 79 76 Respiratory 24 20 Rate Blood Pressure 140/70 149/73 O2 Sat by Pulse 96 96 Oximetry - General Appearance General appearance: well-developed, well-nourished, appears stated age, other (not in distress) EENT: ATNC, PERRL, mucous membranes moist, hearing intact Neck: supple Respiratory: Present: Clear to Ascultation Cardiology: regular, S1S2, no murmurs Gastrointestinal: normoactive bowel sounds, no tenderness, no distended Integumentary: no rash, warm and dry Neurologic: no focal deficit, no asterixis Musculoskeletal: other (tarce LE edema noted) Psychiatric: cooperative - Lab 07/30/18 06:47 07/30/18 06:47 Most recent lab results Calcium 7.7 mg/dL (8.4-10.2) L 07/29/18 05:12 Phosphorus 5.80 mg/dL (2.5-4.5) H 07/25/18 09:07 Magnesium 1.70 mg/dL (1.7-2.3) 07/29/18 05:12 Urine Creatinine 59.1 mg/dL (0.1-20.0) H 07/25/18 10:15 Urine Sodium 36 mmol/L 07/25/18 10:15 Medications & Allergies - Medications Allergies/Adverse Reactions: Allergies No Known Allergies Allergy (Verified 12/11/16 20:57) Home Medications: Home Medications Medication Instructions Recorded Confirmed Last Taken Type Acyclovir 400 mg PO BID 07/25/18 07/25/18 Unknown History Losartan 50 mg PO DAILY 07/25/18 07/25/18 Unknown History Percocet 5/325 mg 1 tab PO Q4H PRN 07/25/18 07/25/18 Unknown History Protonix 40 mg PO DAILY 07/25/18 07/25/18 Unknown History Active Medications: Generic Name Dose Route Start Last Admin Trade Name Freq PRN Reason Stop Dose Admin Acyclovir 400 mg 07/25/18 22:00 07/28/18 22:45 Zovirax PO 400 mg BID JOHNATHON Administration Allopurinol 100 mg 07/29/18 10:00 Zyloprim PO QDAY JOHNATHON Amlodipine Besylate 10 mg 07/28/18 12:00 07/28/18 14:25 Norvasc PO 10 mg QDAY JOHNATHON Administration Sodium Bicarbonate 150 meq/ 1,150 mls @ 30 mls/hr 07/26/18 17:00 07/28/18 22:45 Dextrose IV 75 mls/hr DIRECT JOHNATHON Administration Insulin Human Regular 0 units 07/26/18 11:30 07/28/18 23:35 Humulin R SUB-Q Not Given ACHS JOHNATHON Protocol Oxycodone/Acetaminophen 1 tab 07/25/18 18:37 Percocet 5/325 PO Q4H PRN Pain, Moderate (4-6) Pantoprazole Sodium 40 mg 07/26/18 10:00 07/28/18 09:35 Protonix PO 40 mg QDAY JOHNATHON Administration
[2018-07-29] MEDS: ZOVIRAX PO SCH ×2 (12:07→22:49)
[2018-07-29] MEDS: PROTONIX PO SCH (12:08)
[2018-07-29] MEDS: ZYLOPRIM PO SCH (12:08)
[2018-07-29] MEDS: NORVASC PO SCH (12:08)
--- NOTE | 2018-07-29 18:41 | Progress Note ---
Assessment and Plan Assessment and plan: --Acute renal failure with tubular necrosis; creatinine level trending down Continue IV hydration, avoid nephrotoxins, nephrology wanted to observe 1 more day Monitor renal function --Anemia; requiring 2 units of PRBC transfusion Today hemoglobin is 8.8- 8.4. monitor H&H transfuse additional as needed Hematology. Cleared for discharge and follow up in the office --Myeloma; management per hematology oncology --Obesity; BMI 36.1, advised weight reduction when medically stable --DVT prophylaxis; SCDs Possible discharge tomorrow if stable plan of care reviewed with the patient, family member, and her nurse History Interval history: Patient seen and examined medical records reviewed, [communicated through a bilingual family member] Patient feels better no new complaints Her renal function still abnormal, slowly trending down Alert awake oriented 3 Visit signs noted Hospitalist Physical - Constitutional Vitals: Temp Pulse Resp BP Pulse Ox 98.4 F 72 15 137/67 97 07/29/18 16:36 07/29/18 16:38 07/29/18 16:36 07/29/18 16:36 07/29/18 16:38 General appearance: Present: no acute distress, well-nourished - EENT Eyes: Present: PERRL, EOM intact - Neck Neck: Present: supple, normal ROM - Respiratory Respiratory effort: normal Respiratory: bilateral: diminished, negative: rales, rhonchi, wheezing - Cardiovascular Rhythm: regular Heart Sounds: Present: S1 & S2 - Extremities Extremities: no ischemia, No edema - Abdominal General gastrointestinal: soft, non-tender, non-distended, normal bowel sounds - Integumentary Integumentary: Present: clear, warm - Psychiatric Psychiatric: appropriate mood/affect, cooperative - Neurologic Neurologic: CNII-XII intact, moves all extremities Results - Labs CBC & Chem 7: 07/29/18 05:12 07/29/18 05:12 Labs: Laboratory Last Values WBC 6.4 K/mm3 (4.5-11.0) 07/29/18 05:12 RBC 2.69 M/mm3 (3.65-5.03) L 07/29/18 05:12 Hgb 9.1 gm/dl (10.1-14.3) L 07/29/18 05:12 Hct 26.9 % (30.3-42.9) L 07/29/18 05:12 MCV 100 fl (79-97) H 07/29/18 05:12 MCH 34 pg (28-32) H 07/29/18 05:12 MCHC 34 % (30-34) 07/29/18 05:12 RDW 22.2 % (13.2-15.2) H 07/29/18 05:12 Plt Count 181 K/mm3 (140-440) 07/29/18 05:12 Lymph % (Auto) 9.5 % (13.4-35.0) L 07/29/18 05:12 [place] % (Auto) 11.0 % (0.0-7.3) H 07/29/18 05:12 Eos % (Auto) 0.0 % (0.0-4.3) 07/29/18 05:12 Baso % (Auto) 0.1 % (0.0-1.8) 07/29/18 05:12 Lymph # 0.6 K/mm3 (1.2-5.4) L 07/29/18 05:12 [place] # 0.7 K/mm3 (0.0-0.8) 07/29/18 05:12 Eos # 0.0 K/mm3 (0.0-0.4) 07/29/18 05:12 Baso # 0.0 K/mm3 (0.0-0.1) 07/29/18 05:12 Add Manual Diff Complete 07/24/18 14:04 Total Counted 100 07/24/18 14:04 Seg Neutrophils % 79.4 % (40.0-70.0) H 07/29/18 05:12 Seg Neuts % (Manual) 73.0 % (40.0-70.0) H 07/24/18 14:04 Band Neutrophils % 0 % 07/24/18 14:04 Lymphocytes % (Manual) 15.0 % (13.4-35.0) 07/24/18 14:04 Reactive Lymphs % (Man) 0 % 07/24/18 14:04 Monocytes % (Manual) 12.0 % (0.0-7.3) H 07/24/18 14:04 Eosinophils % (Manual) 0 % (0.0-4.3) 07/24/18 14:04 Basophils % (Manual) 0 % (0.0-1.8) 07/24/18 14:04 Metamyelocytes % 0 % 07/24/18 14:04 Myelocytes % 0 % 07/24/18 14:04 Promyelocytes % 0 % 07/24/18 14:04 Blast Cells % 0 % 07/24/18 14:04 Nucleated RBC % Not Reportable 07/24/18 14:04 Seg Neutrophils # 5.1 K/mm3 (1.8-7.7) 07/29/18 05:12 Seg Neutrophils # Man 5.2 K/mm3 (1.8-7.7) 07/24/18 14:04 Band Neutrophils # 0.0 K/mm3 07/24/18 14:04 Lymphocytes # (Manual) 1.1 K/mm3 (1.2-5.4) L 07/24/18 14:04 Abs React Lymphs (Man) 0.0 K/mm3 07/24/18 14:04 Monocytes # (Manual) 0.9 K/mm3 (0.0-0.8) H 07/24/18 14:04 Eosinophils # (Manual) 0.0 K/mm3 (0.0-0.4) 07/24/18 14:04 Basophils # (Manual) 0.0 K/mm3 (0.0-0.1) 07/24/18 14:04 Metamyelocytes # 0.0 K/mm3 07/24/18 14:04 Myelocytes # 0.0 K/mm3 07/24/18 14:04 Promyelocytes # 0.0 K/mm3 07/24/18 14:04 Blast Cells # 0.0 K/mm3 07/24/18 14:04 WBC Morphology Not Reportable 07/24/18 14:04 Hypersegmented Neuts Not Reportable 07/24/18 14:04 Hyposegmented Neuts Not Reportable 07/24/18 14:04 Hypogranular Neuts Not Reportable 07/24/18 14:04 Smudge Cells Not Reportable 07/24/18 14:04 Toxic Granulation Not Reportable 07/24/18 14:04 Toxic Vacuolation Not Reportable 07/24/18 14:04 Dohle Bodies Not Reportable 07/24/18 14:04 Pelger-Huet Anomaly Not Reportable 07/24/18 14:04 Amy Rods Not Reportable 07/24/18 14:04 Platelet Estimate Not Reportable 07/24/18 14:04 Clumped Platelets Not Reportable 07/24/18 14:04 Plt Clumps, EDTA Not Reportable 07/24/18 14:04 Large Platelets Not Reportable 07/24/18 14:04 Giant Platelets Not Reportable 07/24/18 14:04 Platelet Satelliting Not Reportable 07/24/18 14:04 Plt Morphology Comment Not Reportable 07/24/18 14:04 RBC Morphology Normal 07/24/18 14:04 Dimorphic RBCs Not Reportable 07/24/18 14:04 Polychromasia Not Reportable 07/24/18 14:04 Hypochromasia Not Reportable 07/24/18 14:04 Poikilocytosis Not Reportable 07/24/18 14:04 Anisocytosis Not Reportable 07/24/18 14:04 Microcytosis Not Reportable 07/24/18 14:04 Macrocytosis Not Reportable 07/24/18 14:04 Spherocytes Not Reportable 07/24/18 14:04 Pappenheimer Bodies Not Reportable 07/24/18 14:04 Sickle Cells Not Reportable 07/24/18 14:04 Target Cells Not Reportable 07/24/18 14:04 Tear Drop Cells Not Reportable 07/24/18 14:04 Ovalocytes Not Reportable 07/24/18 14:04 Helmet Cells Not Reportable 07/24/18 14:04 [place] Bodies Not Reportable 07/24/18 14:04 [place] Rings Not Reportable 07/24/18 14:04 Keith Cells Not Reportable 07/24/18 14:04 Bite Cells Not Reportable 07/24/18 14:04 Crenated Cell Not Reportable 07/24/18 14:04 Elliptocytes Not Reportable 07/24/18 14:04 Acanthocytes (Spur) Not Reportable 07/24/18 14:04 Rouleaux Not Reportable 07/24/18 14:04 Hemoglobin C Crystals Not Reportable 07/24/18 14:04 Schistocytes Not Reportable 07/24/18 14:04 Malaria parasites Not Reportable 07/24/18 14:04 Osmany Bodies Not Reportable 07/24/18 14:04 Hem Pathologist Commnt No 07/24/18 14:04 PT 12.4 Sec. (12.2-14.9) 07/24/18 14:04 INR 0.87 (0.87-1.13) 07/24/18 14:04 APTT 22.3 Sec. (24.2-36.6) L 07/24/18 14:04 Sodium 144 mmol/L (137-145) 07/29/18 05:12 Potassium 3.5 mmol/L (3.6-5.0) L 07/29/18 05:12 Chloride 103.0 mmol/L (98-107) 07/29/18 05:12 Carbon Dioxide 24 mmol/L (22-30) 07/29/18 05:12 Anion Gap 21 mmol/L 07/29/18 05:12 BUN 60 mg/dL (7-17) H 07/29/18 05:12 Creatinine 3.7 mg/dL (0.7-1.2) H 07/29/18 05:12 Estimated GFR 12 ml/min 07/29/18 05:12 BUN/Creatinine Ratio 16 % 07/29/18 05:12 Glucose 123 mg/dL (65-100) H 07/29/18 05:12 Calcium 7.7 mg/dL (8.4-10.2) L 07/29/18 05:12 Phosphorus 5.80 mg/dL (2.5-4.5) H 07/25/18 09:07 Magnesium 1.70 mg/dL (1.7-2.3) 07/29/18 05:12 Total Bilirubin 0.40 mg/dL (0.1-1.2) 07/27/18 07:24 AST 89 units/L (5-40) H 07/27/18 07:24 ALT 60 units/L (7-56) H 07/27/18 07:24 Alkaline Phosphatase 303 units/L (35-129) H 07/27/18 07:24 Total Creatine Kinase 26 units/L (30-135) L 07/28/18 04:29 Total Protein 8.0 g/dL (6.3-8.2) 07/27/18 07:24 Albumin 3.4 g/dL (3.9-5) L 07/27/18 07:24 Albumin/Globulin Ratio 0.7 % 07/27/18 07:24 Amylase 56 units/L (27-131) 07/28/18 04:29 Lipase 37 units/L (13-60) 07/28/18 04:29 PTH Intact 134.2 pg/mL (15-65) H 07/26/18 06:52 Urine Color Straw (Yellow) 07/25/18 10:15 Urine Turbidity Clear (Clear) 07/25/18 10:15 Urine pH 6.0 (5.0-7.0) 07/25/18 10:15 Ur Specific Perkins 1.008 (1.003-1.030) 07/25/18 10:15 Urine Protein 30 mg/dl mg/dL (Negative) 07/25/18 10:15 Urine Glucose (UA) Neg mg/dL (Negative) 07/25/18 10:15 Urine Ketones Neg mg/dL (Negative) 07/25/18 10:15 Urine Blood Neg (Negative) 07/25/18 10:15 Urine Nitrite Neg (Negative) 07/25/18 10:15 Urine Bilirubin Neg (Negative) 07/25/18 10:15 Urine Urobilinogen < 2.0 mg/dL (<2.0) 07/25/18 10:15 Ur Leukocyte Esterase Tr (Negative) 07/25/18 10:15 Urine WBC (Auto) 2.0 /HPF (0.0-6.0) 07/25/18 10:15 Urine RBC (Auto) 5.0 /HPF (0.0-6.0) 07/25/18 10:15 U Epithel Cells (Auto) 1.0 /HPF (0-13.0) 07/25/18 10:15 Urine Bacteria (Auto) 1+ /HPF (Negative) 07/25/18 10:15 Urine Mucus Few /HPF 07/25/18 10:15 Urine Eosinophils None seen (None Seen) 07/25/18 10:15 Urine Creatinine 59.1 mg/dL (0.1-20.0) H 07/25/18 10:15 Urine Sodium 36 mmol/L 07/25/18 10:15 Blood Type O POSITIVE 07/24/18 14:04 Antibody Screen Negative 07/24/18 14:04 Crossmatch See Detail 07/24/18 14:04 Active Medications - Current Medications Current Medications: Generic Name Dose Route Start Last Admin Trade Name Freq PRN Reason Stop Dose Admin Acyclovir 400 mg 07/25/18 22:00 07/29/18 12:07 Zovirax PO 400 mg BID JOHNATHON Administration Allopurinol 100 mg 07/29/18 10:00 07/29/18 12:08 Zyloprim PO 100 mg QDAY JOHNATHON Administration Amlodipine Besylate 10 mg 07/28/18 12:00 07/29/18 12:08 Norvasc PO 10 mg QDAY JOHNATHON Administration Sodium Bicarbonate 150 meq/ 1,150 mls @ 30 mls/hr 07/26/18 17:00 07/28/18 22:45 Dextrose IV 75 mls/hr DIRECT JOHNATHON Administration Insulin Human Regular 0 units 07/26/18 11:30 07/29/18 18:17 Humulin R SUB-Q Not Given ACHS JOHNATHON Protocol Oxycodone/Acetaminophen 1 tab 07/25/18 18:37 Percocet 5/325 PO Q4H PRN Pain, Moderate (4-6) Pantoprazole Sodium 40 mg 07/26/18 10:00 07/29/18 12:08 Protonix PO 40 mg QDAY JOHNATHON Administration
[2018-07-30 07:48] LABS: Basophils % (Auto) 0.2 % (0.0-1.8); Eosinophils % (Auto) 0.5 % (0.0-4.3); Hematocrit 26.3 % (30.3-42.9); Hemoglobin 8.7 gm/dl (10.1-14.3); Lymphocytes # (Auto) 0.6 K/mm3 (1.2-5.4); Lymphocytes % (Auto) 12.3 % (13.4-35.0); Mean Corpuscular HGB Conc 33 % (30-34); Mean Corpuscular Volume 101 fl (79-97); Monocytes # (Auto) 0.7 K/mm3 (0.0-0.8); Monocytes % (Auto) 12.9 % (0.0-7.3); Platelet Count 168 K/mm3 (140-440); Red Cell Distribution Width 22.7 % (13.2-15.2)
[2018-07-30] MEDS: HumuLIN R SUB-Q SCH (08:00)
[2018-07-30 08:05] LABS: Calcium 7.3 mg/dL (8.4-10.2)
--- NOTE | 2018-07-30 08:38 | Hem/Onc Progress Note ---
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 2.9 in recent past pt had BMBx in may 2018 plan was for daratumumab had given option of brielle to family HTN SCD - as anemia nephrology consult ivf admission status change from observation to admission tried to call grand son using pt phone and hospital phone - no respone 07/26/2018 myeloma - SFLCA in office was better in recent past was 115 in jan - 248 mid jun 2018 - 316 and jul 24 - 162 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 fluid related - d/w grandson - if not better - would need Ix pt wants to go home myeloma - d/w pt and family reg darzalex as a 5th line - insurance auth pending anemia - s/p procrit and transfusion - Patient Problems (1) Anemia Current Visit: Yes Status: Acute (2) Myeloma Current Visit: Yes Status: Acute Subjective Date of service: 07/30/18 Principal diagnosis: Myeloma - anemia Interval history: leg edema feeling better wants to go home Objective - Constitutional Vitals: Last Vital Signs Temp 98.3 F 07/30/18 05:09 Pulse 78 07/30/18 05:09 Resp 18 07/30/18 05:09 BP 144/69 07/30/18 05:09 Pulse Ox 97 07/30/18 05:09 Pain Intensity (0-10): denies any pain General appearance: no acute distress Performance status: 4-completely disabled - EENT Eyes: EOM intact ENT: clear oral mucosa Lymph node exam: negative cervical - Neck Neck: normal ROM - Respiratory Respiratory effort: Positive: normal Respiratory: bilateral: CTA - Cardiovascular Heart Sounds: Present: S1 & S2 Extremity abnormal: edema - Gastrointestinal General gastrointestinal: Present: soft, non-tender Rectal Exam: deferred - Genitourinary Female genitourinary: Present: deferred - Integumentary Integumentary: warm - Musculoskeletal Musculoskeletal: strength equal bilaterally - Neurologic Neurologic: moves all extremities - Labs Lab Results: Laboratory Results - last 24 hr 07/30/18 07/30/18 06:47 06:47 WBC 5.1 RBC 2.60 L Hgb 8.7 L Hct 26.3 L MCV 101 H MCH 34 H MCHC 33 RDW 22.7 H Plt Count 168 Lymph % (Auto) 12.3 L [place] % (Auto) 12.9 H Eos % (Auto) 0.5 Baso % (Auto) 0.2 Lymph # 0.6 L Phillips # 0.7 Eos # 0.0 Baso # 0.0 Seg Neutrophils % 74.1 H Seg Neutrophils # 3.8 Sodium 142 Potassium 3.5 L Chloride 104.4 Carbon Dioxide 27 Anion Gap 14 BUN 54 H Creatinine 3.3 H Estimated GFR 13 BUN/Creatinine Ratio 16 Glucose 86 Calcium 7.3 L Medications & Allergies - Medications Allergies/Adverse Reactions: Allergies No Known Allergies Allergy (Verified 12/11/16 20:57) Home Medications: Home Medications Medication Instructions Recorded Confirmed Last Taken Type Acyclovir 400 mg PO BID 07/25/18 07/25/18 Unknown History Percocet 5/325 mg 1 tab PO Q4H PRN 07/25/18 07/25/18 Unknown History Protonix 40 mg PO DAILY 07/25/18 07/25/18 Unknown History Allopurinol [Zyloprim] 100 mg PO QDAY #30 tablet 07/30/18 Unknown Rx amLODIPine [Norvasc] 10 mg PO QDAY #30 tablet 07/30/18 Unknown Rx Active Medications: Generic Name Dose Route Start Last Admin Trade Name Freq PRN Reason Stop Dose Admin Acyclovir 400 mg 07/25/18 22:00 07/29/18 22:49 Zovirax PO 400 mg BID JOHNATHON Administration Allopurinol 100 mg 07/29/18 10:00 07/29/18 12:08 Zyloprim PO 100 mg QDAY JOHNATHON Administration Amlodipine Besylate 10 mg 07/28/18 12:00 07/29/18 12:08 Norvasc PO 10 mg QDAY JOHNATHON Administration Sodium Bicarbonate 150 meq/ 1,150 mls @ 30 mls/hr 07/26/18 17:00 07/28/18 22:45 Dextrose IV 75 mls/hr DIRECT JOHNATHON Administration Insulin Human Regular 0 units 07/26/18 11:30 07/29/18 22:48 Humulin R SUB-Q Not Given ACHS JOHNATHON Protocol Oxycodone/Acetaminophen 1 tab 07/25/18 18:37 Percocet 5/325 PO Q4H PRN Pain, Moderate (4-6) Pantoprazole Sodium 40 mg 07/26/18 10:00 07/29/18 12:08 Protonix PO 40 mg QDAY JOHNATHON Administration
[2018-07-30] MEDS ORDERED: K-DUR PO ONE (10:25)
--- NOTE | 2018-07-30 10:27 | Progress Note ---
Assessment and Plan 1. Acute kidney injury: LIZETT superimposed on CKD stage 3 in the setting of Myeloma. ATN vs Myeloma kidney. Renal function is improving. Encouraged PO fluids. Monitor renal function. Renal prognosis is guarded. Avoid nephrotoxic agents. 2. FEN: Hyperkalemia, improved. Metabolic acidosis, improved. Replete K. Monitor lytes. 3. Anemia: S/p PRBC. 4. Multiple Myeloma. 5. HTN: Continue Amlodipine. BP is better. 6. DM type 2. Her grandson was at the bedside who helped in translating. F/u with me in 3-4 days. Subjective Date of service: 07/30/18 Principal diagnosis: myeloma Interval history: Patient was seen and examined at the bedside. Feeling better. Objective - Vital Signs Vital signs: Vital Signs - 12hr 07/29/18 07/30/18 23:05 05:09 Temperature 98.3 F 98.3 F Pulse Rate 80 78 Respiratory 18 18 Rate Blood Pressure 145/65 144/69 O2 Sat by Pulse 97 97 Oximetry - General Appearance General appearance: well-developed, well-nourished, appears stated age, other (not in distress) EENT: ATNC, PERRL, mucous membranes moist, hearing intact, vision intact Neck: supple Respiratory: Present: Clear to Ascultation Cardiology: regular, S1S2, no murmurs Gastrointestinal: normoactive bowel sounds, no tenderness, no distended Integumentary: no rash, warm and dry Neurologic: no focal deficit, no asterixis Musculoskeletal: other (trace LE edema noted) Psychiatric: cooperative - Lab 07/30/18 06:47 07/30/18 06:47 Most recent lab results Calcium 7.3 mg/dL (8.4-10.2) L 07/30/18 06:47 Phosphorus 5.80 mg/dL (2.5-4.5) H 07/25/18 09:07 Magnesium 1.70 mg/dL (1.7-2.3) 07/29/18 05:12 Urine Creatinine 59.1 mg/dL (0.1-20.0) H 07/25/18 10:15 Urine Sodium 36 mmol/L 07/25/18 10:15 Medications & Allergies - Medications Allergies/Adverse Reactions: Allergies No Known Allergies Allergy (Verified 12/11/16 20:57) Home Medications: Home Medications Medication Instructions Recorded Confirmed Last Taken Type Acyclovir 400 mg PO BID 07/25/18 07/25/18 Unknown History Percocet 5/325 mg 1 tab PO Q4H PRN 07/25/18 07/25/18 Unknown History Protonix 40 mg PO DAILY 07/25/18 07/25/18 Unknown History Allopurinol [Zyloprim] 100 mg PO QDAY #30 tablet 07/30/18 Unknown Rx amLODIPine [Norvasc] 10 mg PO QDAY #30 tablet 07/30/18 Unknown Rx Active Medications: Generic Name Dose Route Start Last Admin Trade Name Freq PRN Reason Stop Dose Admin Acyclovir 400 mg 07/25/18 22:00 07/29/18 22:49 Zovirax PO 400 mg BID JOHNATHON Administration Allopurinol 100 mg 07/29/18 10:00 07/29/18 12:08 Zyloprim PO 100 mg QDAY JOHNATHON Administration Amlodipine Besylate 10 mg 07/28/18 12:00 07/29/18 12:08 Norvasc PO 10 mg QDAY JOHNATHON Administration Sodium Bicarbonate 150 meq/ 1,150 mls @ 30 mls/hr 07/26/18 17:00 07/28/18 22:45 Dextrose IV 75 mls/hr DIRECT JOHNATHON Administration Insulin Human Regular 0 units 07/26/18 11:30 07/29/18 22:48 Humulin R SUB-Q Not Given ACHS JOHNATHON Protocol Oxycodone/Acetaminophen 1 tab 07/25/18 18:37 Percocet 5/325 PO Q4H PRN Pain, Moderate (4-6) Pantoprazole Sodium 40 mg 07/26/18 10:00 07/29/18 12:08 Protonix PO 40 mg QDAY JOHNATHON Administration Potassium Chloride 40 meq 07/30/18 10:25 K-Dur PO 07/30/18 10:26 ONCE ONE
[2018-07-30] MEDS: ZYLOPRIM PO SCH (10:57)
[2018-07-30] MEDS: NORVASC PO SCH (10:57)
[2018-07-30] MEDS: ZOVIRAX PO SCH (10:57)
[2018-07-30] MEDS: PROTONIX PO SCH (10:59)
--- NOTE | 2018-07-30 11:10 | Discharge Summary ---
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 Pt hospital course complicated by Acute Renal Failure. Pt care transferred to Hospitalist Service. Symptomatically managed,received 2 units PRBC. Symptoms improved.Today patient is comfortable,no new complaints,vital signs stable, Stable at discharge Physical exam is unremarkable. Advise to f/u PMD and hematoogist upon discharge Discharge Diagnosis: --Acute renal failure with tubular necrosis; creatinine level trending down on IV hydration, avoid nephrotoxins, Patient will f/u nephrology upon ,discharge --Anemia; requiring 2 units of PRBC transfusion Today hemoglobin is 8.8- 8.4. monitor H&H transfuse additional as needed Hematology. Cleared for discharge and follow up in the office --Myeloma; management per hematology oncology --Obesity; BMI 36.1, advised weight reduction when medically stable --DVT prophylaxis; SCDs Disposition: DC-01 TO HOME OR SELFCARE Time spent for discharge: 32 min Core Measure Documentation - Palliative Care Palliative Care/ Comfort Measures: Not Applicable - Core Measures Any of the following diagnoses?: none Exam - Constitutional Vitals: Temp Pulse Resp BP Pulse Ox 98.3 F 78 18 144/69 97 07/30/18 05:09 07/30/18 05:09 07/30/18 05:09 07/30/18 05:09 07/30/18 05:09 General appearance: Present: no acute distress, well-nourished - EENT Eyes: Present: PERRL, EOM intact - Neck Neck: Present: supple, normal ROM - Respiratory Respiratory effort: normal Respiratory: bilateral: diminished, negative: rales, rhonchi, wheezing - Cardiovascular Rhythm: regular Heart Sounds: Present: S1 & S2 - Extremities Extremities: no ischemia, No edema - Abdominal General gastrointestinal: Present: soft, non-tender, non-distended, normal bowel sounds - Integumentary Integumentary: Present: clear, warm - Musculoskeletal Musculoskeletal: strength equal bilaterally - Psychiatric Psychiatric: appropriate mood/affect, cooperative - Neurologic Neurologic: CNII-XII intact, moves all extremities Plan Activity: advance as tolerated, fall precautions Diet: regular Additional Instructions: advise plenty oral fluids Follow up with: TAI VARELA MD [Primary Care Provider] - 7 Days MACARIO AYALA MD [Staff Physician] - 7 Days DEBBY RAMIREZ MD [Staff Physician] - 7 Days Prescriptions: amLODIPine [Norvasc] 10 mg PO QDAY #30 tablet Allopurinol [Zyloprim] 100 mg PO QDAY #30 tablet
[2018-07-30 12:32] VITALS: BP 149/69
== END 2018-07-30 12:30 | disposition home or self-care (01) | DRG 840 ==
LOC: 3A 12:59 → UNDOADMOB 13:07 → 3A 13:07 → OBSVTOIN 07-25 12:59
PROVIDERS: ADMIT Internal Medicine Hematology & Oncology; ATTEND Internal Medicine
PROC: 30233N1 Transfusion of Nonautologous Red Blood Cells into Peripheral Vein, Percutaneous Approach (ICD-10-PCS; principal; 2018-07-24)
DX: C90.00 Multiple myeloma not having achieved remission (principal); N17.0 Acute kidney failure with tubular necrosis; E87.2 Acidosis; I13.0 Hypertensive heart and chronic kidney disease with heart failure and stage 1 through stage 4 chronic kidney disease, or unspecified chronic kidney disease; I50.20 Unspecified systolic (congestive) heart failure; D64.9 Anemia, unspecified; N18.3 Chronic kidney disease, stage 3 (moderate); E66.9 Obesity, unspecified; E11.22 Type 2 diabetes mellitus with diabetic chronic kidney disease; I48.0 Paroxysmal atrial fibrillation; J44.9 Chronic obstructive pulmonary disease, unspecified; Z68.36 Body mass index [BMI] 36.0-36.9, adult; Z71.3 Dietary counseling and surveillance; Z79.899 Other long term (current) drug therapy
CPT/HCPCS: 36415; 76770; 80048; 80053; 81001; 82150; 82550; 82570; 83690; 83735; 83970; 84100; 84300; 85007; 85025; 85610; 85730; 86334; 86850; 86900; 86901; 86920; 89050; 94640; G0378; G0379; J0610; J0885; J1815; J7030; J7040; J7070; J8540; P9016